=== PATIENT | male | born 1970 | race Caucasian/White ===

== ENCOUNTER → 2016-06-05 | Outpatient (CLI) | payer OTHER ==
[~2016-06-05] MED LIST: ASPEC81 PO; ATOR-26 PO; LOSA50TA6 PO; METO25TA3 PO; MULT-513 PO; OMEGCAP2 PO; PLV75 PO; SALI0.6510 NAE; TPRSR/25 PO; TRIA1SPR4
[2016-06-05 14:35] LABS: INFLUENZA A PCR Neg for Influ A (NEG); INFLUENZA B PCR Neg for Influ B (NEG)
== END | disposition home or self-care (01) ==
LOC: C.LABBC 12:31
PROVIDERS: ATTEND Family Medicine
DX: Z00.00 Encounter for general adult medical examination without abnormal findings (principal)

== ENCOUNTER → 2016-06-28 | Outpatient (CLI) | payer OTHER ==
[2016-06-28 11:01] LABS: BASO ABS # 0.07 K/uL (0-0.2); COMPLETE YES; EOS % 2.1 %; HEMATOCRIT 44.1 % (42-52); IG% 0.3 %; LYMPH % 30.3 %; LYMPH ABS # 2.17 K/uL (1.2-3.4); MEAN CELL VOLUME 88.4 fL (80-100); MEAN CORPUSCULAR HEMOGLOBIN 30.1 pg (25-34); MEAN PLATELET VOLUME 9.8 fL (7.4-10.4); MONO % 8.1 %; NEUT % 58.2 %; PLATELET COUNT 282 K/uL (130-400); RED BLOOD COUNT 4.99 M/uL (4.7-6.1); WHITE BLOOD COUNT 7.17 K/uL (4.8-10.8)
[2016-06-28 11:15] LABS: ALT/SGPT 36 U/L (12-78); AST/SGOT 14 U/L (15-37); BLOOD UREA NITROGEN 14 mg/dl (7-18); BUN/CREATININE RATIO 14.7 (10-20); CALCIUM 9.2 mg/dl (8.5-10.1); CARBON DIOXIDE 28 mmol/L (21-32); CHLORIDE 103 mmol/L (98-107); CREATININE 0.94 mg/dl (0.60-1.40); GLUCOSE 96 mg/dl (70-99); POTASSIUM 4.3 mmol/L (3.5-5.1); SODIUM 141 mmol/L (136-145)
[2016-06-28 11:18] LABS: ALB/GLOB RATIO 1.1 (0.9-2); ALKALINE PHOSPHATASE 67 U/L (45-117); CHOLESTEROL 246 mg/dl (0-200); CHOLESTEROL/HDL RATIO 6.6; HDL CHOLESTEROL 37 mg/dl; LDL CHOLESTEROL CALCULATED 163 mg/dl; TRIGLYCERIDES 232 mg/dl (0-150); VERY LOW DENSITY LIPOPROT CALC 46 mg/dl
[2016-06-28 12:34] LABS: LYME DISEASE AB IGG NEG (NEG); LYME DISEASE AB IGM NEG (NEG)
== END | disposition home or self-care (01) ==
LOC: C.LABBC 06:59
PROVIDERS: ATTEND Family Medicine
DX: T14.8 Other injury of unspecified body region (principal); W57.XXXA Bitten or stung by nonvenomous insect and other nonvenomous arthropods, initial encounter; Z13.0 Encounter for screening for diseases of the blood and blood-forming organs and certain disorders involving the immune mechanism; I10 Essential (primary) hypertension; E78.5 Hyperlipidemia, unspecified

== ENCOUNTER 2016-10-15 20:08 | Inpatient (IN) | payer OTHER ==
[~2016-10-15] VITALS: Ht 175.3 cm; Wt 95.4 kg
[~2016-10-15 20:08] MED LIST changes: -ASPEC81 PO; -ATOR-26 PO; -METO25TA3 PO; -PLV75 PO; -TPRSR/25 PO; -TRIA1SPR4
--- NOTE | 2016-10-15 21:31 | DIAGNOSTIC IMAGING REPORT ---
CHEST ONE VIEW PORTABLE HISTORY: Evaluate Fever/Sepsis COMPARISON: Chest 05/17/2013. FINDINGS: Cardiac silhouette remains top normal in size no pleural effusions. No pneumothorax. Punctate calcified granuloma within the left lower lobe, unchanged. No focal lung consolidations to suggest pneumonia. No evidence for pulmonary edema. IMPRESSION: No significant change compared to the prior study. No acute process. Electronically signed by: Yoshi Johnson M.D. 10/15/2016 9:29 PM Dictated Date/Time: 10/15/2016 9:28 PM
[2016-10-15 22:00] LABS: PARTIAL THROMBOPLASTIN RATIO 1.1; PROTHROMBIN TIME (PATIENT) 10.9 SECONDS (9.0-12.0)
[2016-10-15 22:04] LABS: BASO % 0.6 %; BASO ABS # 0.06 K/uL (0-0.2); COMPLETE YES; HEMATOCRIT 43.5 % (42-52); IG% 0.5 %; LYMPH % 21.9 %; LYMPH ABS # 2.35 K/uL (1.2-3.4); MEAN CELL VOLUME 88.2 fL (80-100); MEAN PLATELET VOLUME 9.1 fL (7.4-10.4); MONO % 8.4 %; NEUT % 67.6 %; PLATELET COUNT 293 K/uL (130-400); RED BLOOD COUNT 4.93 M/uL (4.7-6.1); WHITE BLOOD COUNT 10.71 K/uL (4.8-10.8)
[2016-10-15 22:06] LABS: BUN/CREATININE RATIO 11.2 (10-20); CREATININE 0.93 mg/dl (0.60-1.40); POTASSIUM 3.9 mmol/L (3.5-5.1)
[2016-10-15 22:31] LABS: CKMB/CK RATIO 6.6 (0-3.0); THYROID STIMULATING HORMONE 3.65 uIu/ml (0.300-4.500)
[2016-10-15] MEDS ORDERED: ASPIRIN 81 MG CHEW PO STA (22:35)
[2016-10-15 22:41] LABS: URINE APPEARANCE CLEAR (CLEAR); URINE BILIRUBIN NEG (NEG); URINE COLOR YELLOW; URINE NITRITE NEG (NEG); UROBILINOGEN NEG (NEG)
[2016-10-15 22:42] LABS: MANUAL MICROSCOPIC REQUIRED? NO; REVIEW REQ? NO
[2016-10-15] MEDS ORDERED: HEPARIN SOD 5000 UNIT/0.5 ML CARP ONE (22:46)
[2016-10-15] MEDS ORDERED: HEPARIN 25000 UNIT/500 ML D5W ONE (22:47)
[2016-10-16] VITALS (12 sets, daily range): BP systolic 112–173; BP diastolic 74–114; PULSE 76–96; TEMP 36.5–37; O2SAT 91–97; Ht 175.3 cm; Wt 95.4 kg
[2016-10-16] MEDS ORDERED: MAGNESIUM HYDROXIDE SUSP 30 ML UDC PO PRN (00:45)
[2016-10-16] MEDS ORDERED: POLYETHYLENE (MIRALAX) 17 GM PACK PO PRN (00:45)
[2016-10-16] MEDS ORDERED: SODIUM CHLORIDE 0.65% NA SOLN 45 ML (OCEAN) NAE PRN (00:45)
[2016-10-16] MEDS ORDERED: LABETALOL HCL IV 5 MG/ML 20ML IV PRN (00:45)
[2016-10-16] MEDS ORDERED: ACETAMINOPHEN 325 MG TAB PO PRN ×2 (00:45→20:45)
[2016-10-16] MEDS ORDERED: ALUMINUM/MAGNESIUM/SIMETH (MAALOX MAX) 30 ML UDC PO PRN (00:45)
[2016-10-16] MEDS ORDERED: NITROGLYCERIN 0.4 MG SL PER TAB CHARGE SL PRN (00:45)
[2016-10-16] MEDS ORDERED: ONDANSETRON INJ 2 MG/ML 2 ML VIAL IV PRN ×2 (00:45→20:45)
--- NOTE | 2016-10-16 01:12 | History and Physical ---
History & Physical Date & Time of Service: Oct 16, 2016 at 00:51 Chief Complaint: Chest Discomfort Primary Care Physician: Jaret Reid D.O.Int.Med. History of Present Illness Source: patient, spouse This is a pleasant 46-year-old gentleman with a history of hypertension, but otherwise no cardiac history who presents to the ED after 2 days of epigastric pain. States that the pain started quite suddenly 2 days ago. He describes 10/10 burning-type pain in the epigastrium. States that it was worse prior to meals, and that food in fact made it better. Cannot correlate any specific kinds of food, and no correlation to fatty foods. Sometimes putting a pillow on his back and arching his back makes the pain better. Today however he noted that the pain actually got worse after his dinner and given the persistence of the pain decided to come to the emergency room for further evaluation. Currently his pain is completely gone. States his exercise tolerance is generally good. 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 He also states that he does in home exercises. He denies ever having exertional chest pain or shortness of breath. His other modifiable includes risk factors hypertension, for which she takes losartan. He smokes a total of 1 pack per month, has been doing this for approximately last 20 years. He states that he has "borderline" cholesterol levels, and is not a diabetic. He denies ever being evaluated for coronary disease, he's never had a cardiac catheterization, CABG, or echocardiogram. He his only other complaint at this time is that 2 weeks ago he had URI type symptoms including cough and nasal congestion. However the symptoms have been resolving and he is doing well from the standpoint at this time. He was seen by [facility] earlier on this evening. An EKG was notable for anterior T-wave inversions. There are no acute ST elevations. In the ED he was treated with 325 aspirin chew, 0.4 mg sublingual nitroglycerin. A troponin level was elevated at 2.1, and essentially started on a heparin infusion she currently has running. Past Medical/Surgical History Medical Problems: (1) HYPERTENSION NOS Status: Chronic Family History Cancer Diabetes mellitus Gallbladder disease Hypertension Kidney disease Kidney stones Seizures Social History Smoking Status: Current Some Day Smoker (one pack per month) Smokeless Tobacco Use: No Alcohol Use: occasionally (12 beers per week) Drug Use: none Marital Status: Housing status: lives with family Occupational Status: employed Allergies Coded Allergies: No Known Allergies (Unverified , 10/15/16) Home Medications Scheduled Losartan Potassium (Cozaar), 50 MG PO DAILY Multivitamins/Minerals (Mvi With Minerals), 1 TAB PO DAILY [place]-3 Fatty Acids (Fish Oil), 2 CAP PO DAILY Scheduled PRN Saline ([place] Nasal [place]), 1 SPRAY JAMA for congestion Review of Systems 10 point review of systems was otherwise negative unless stated above in the history of present illness Physical Exam Vital Signs Date Time Temp Pulse Resp B/P (MAP) Pulse Ox O2 Delivery O2 Flow Rate FiO2 10/16/16 00:08 92 20 95 10/16/16 00:00 156/108 10/15/16 23:38 94 18 96 10/15/16 23:08 87 21 97 10/15/16 23:00 165/101 10/15/16 22:38 89 17 96 10/15/16 22:29 163/103 10/15/16 22:29 94 21 163/103 95 Room Air 10/15/16 22:08 86 21 93 10/15/16 22:00 90 20 186/96 95 Room Air 10/15/16 22:00 186/96 10/15/16 21:40 92 22 155/112 97 Room Air 10/15/16 21:38 96 Room Air 10/15/16 21:38 94 25 97 10/15/16 21:33 94 10/15/16 21:31 155/112 10/15/16 20:10 36.7 95 16 172/105 98 Room Air General Appearance: WD/WN, no apparent distress Head: normocephalic, atraumatic Eyes: normal inspection, EOMI ENT: hearing grossly normal, pharynx normal Neck: supple, no adenopathy, no JVD Respiratory/Chest: lungs clear, no respiratory distress Cardiovascular: regular rate, rhythm, no gallop, no murmur Abdomen/GI: normal bowel sounds, non tender, soft, + pertinent finding (no right upper quadrant pain; Fraser sign is negative) Back: no CVA tenderness, no muscle spasm Extremities/Musculoskelatal: no calf tenderness, no pedal edema Neurologic/Psych: alert, normal mood/affect, oriented x 3 Skin: normal color, warm/dry, no rash Lymphatic: no adenopathy Diagnostics Laboratory Results Results Past 24 Hours Test 10/15/16 21:36 10/15/16 22:25 Range/Units White Blood Count 10.71 4.8-10.8 K/uL Red Blood Count 4.93 4.7-6.1 M/uL Hemoglobin 14.8 14.0-18.0 g/dL Hematocrit 43.5 42-52 % Mean Corpuscular Volume 88.2 80-100 fL Mean Corpuscular Hemoglobin 30.0 25-34 pg Mean Corpuscular Hemoglobin Concent 34.0 32-36 g/dl Platelet Count 293 130-400 K/uL Mean Platelet Volume 9.1 7.4-10.4 fL Neutrophils (%) (Auto) 67.6 % Lymphocytes (%) (Auto) 21.9 % Monocytes (%) (Auto) 8.4 % Eosinophils (%) (Auto) 1.0 % Basophils (%) (Auto) 0.6 % Neutrophils # (Auto) 7.24 1.4-6.5 K/uL Lymphocytes # (Auto) 2.35 1.2-3.4 K/uL Monocytes # (Auto) 0.90 0.11-0.59 K/uL Eosinophils # (Auto) 0.11 0-0.5 K/uL Basophils # (Auto) 0.06 0-0.2 K/uL RDW Standard Deviation 42.9 36.4-46.3 fL RDW Coefficient of Variation 13.2 11.5-14.5 % Immature Granulocyte % (Auto) 0.5 % Immature Granulocyte # (Auto) 0.05 0.00-0.02 K/uL Prothrombin Time 10.9 9.0-12.0 SECONDS Prothromb Time International Ratio 1.0 0.9-1.1 Activated Partial Thromboplast Time 28.1 21.0-31.0 SECONDS Partial Thromboplastin Ratio 1.1 Sodium Level 140 136-145 mmol/L Potassium Level 3.9 3.5-5.1 mmol/L Chloride Level 103 98-107 mmol/L Carbon Dioxide Level 29 21-32 mmol/L Anion Gap 8.0 3-11 mmol/L Blood Urea Nitrogen 10 7-18 mg/dl Creatinine 0.93 0.60-1.40 mg/dl Est Creatinine Clear Calc Drug Dose 112.0 ml/min Estimated GFR () 112.1 Estimated GFR (Non- 96.7 BUN/Creatinine Ratio 11.2 10-20 Random Glucose 106 70-99 mg/dl Calcium Level 9.0 8.5-10.1 mg/dl Total Bilirubin 0.3 0.2-1 mg/dl Direct Bilirubin 0.1 0-0.2 mg/dl Aspartate Amino Transf (AST/SGOT) 31 15-37 U/L Alanine Aminotransferase (ALT/SGPT) 35 12-78 U/L Alkaline Phosphatase 72 45-117 U/L Total Creatine Kinase 248 39-308 U/L Creatine Kinase MB 16.4 0.5-3.6 ng/ml Creatine Kinase MB Ratio 6.6 0-3.0 Troponin I 2.120 0-0.045 ng/ml Total Protein 7.3 6.4-8.2 gm/dl Albumin 3.7 3.4-5.0 gm/dl Lipase 150 73-393 U/L Thyroid Stimulating Hormone (TSH) 3.650 0.300-4.500 uIu/ml Urine Color YELLOW Urine Appearance CLEAR CLEAR Urine pH 7.0 4.5-7.5 Urine Specific [place] 1.020 1.000-1.030 Urine Protein NEG NEG Urine Glucose (UA) NEG NEG Urine Ketones NEG NEG Urine Occult Blood NEG NEG Urine Nitrite NEG NEG Urine Bilirubin NEG NEG Urine Urobilinogen NEG NEG Urine Leukocyte Esterase NEG NEG Diagnostic Radiology CHEST ONE VIEW PORTABLE HISTORY: Evaluate Fever/Sepsis COMPARISON: Chest 05/17/2013. FINDINGS: Cardiac silhouette remains top normal in size no pleural effusions. No pneumothorax. Punctate calcified granuloma within the left lower lobe, unchanged. No focal lung consolidations to suggest pneumonia. No evidence for pulmonary edema. IMPRESSION: No significant change compared to the prior study. No acute process. Electronically signed by: Yoshi Johnson M.D. 10/15/2016 9:29 PM Dictated Date/Time: 10/15/2016 9:28 PM The status of this report is Signed. Draft = Not yet reviewed or approved by Radiologist. Signed = Reviewed and approved by Radiologist. EKG Normal sinus rhythm, ventricular rate 95 beats per minutes T-wave inversion in leads V2 to V5 RSR her pattern in lead V1, narrow QRS complexes (incomplete RBBB) No acute ST elevation and no evidence of a left bundle branch block Impression Assessment and Plan (1) NSTEMI (non-ST elevated myocardial infarction) Assessment & Plan: - Admit the patient to telemetry - EKG in the morning and with chest pain - Serial cardiac enzyme monitoring every 6 hours until peak - Consult cardiology - Resting echocardiogram ordered; exercise stress testing may worsen an existing lesions, particularly in the setting of suspected myocardial damage Evaluate for regional wall motion abnormality; there are no previous echoes for comparison The patient ultimately may require cardiac catheterization, though we will leave this decision to cardiology and the primary team - ASA 324 mg given in the ED; continue with daily aspirin 81 mg - Sublingual nitroglycerin 0.4 mg when necessary for chest pain - Start atorvastatin 80 mg - Continue losartan; decision to cell changer to ACEi at the discretion of primary team and cardiology - Decision to start beta liset, per primary team cardiology - Heparin infusion - Risk factor screening: Check fasting lipid profile and hemoglobin A1c with morning labs - Recommend smoking cessation counseling - Recommend pneumococcal vaccine, the patient is indeed confirmed to had an acute ID (2) HTN (hypertension) Assessment & Plan: - Continue losartan: Decision to cell changer to an SUSANNE inhibitor, per primary team and cardiology - Labetalol 5 mg IV every 4 hours when necessary for SBP greater than 160 or DBP greater than 100 (3) Lung granuloma Assessment & Plan: - As noted on chest x-ray - Stable compared to chest x-ray from 2014 DVT Prophylaxis - SCD - Heparin infusion Code Status - Level I Code - Designates to be POA if he cannot make his own decisions Disposition - Telemetry monitoring Level of Care Telemetry Resuscitation Status FULL RESUSCITATION VTE Prophylaxis VTE Risk Assessment Done? Y/N: Yes Risk Level: Moderate Given or contraindicated: Other Anticoagulation (heparin infusion) Note Resident Physician Supervision Note: I was present with Dr. Rey during the history and exam. I discussed the case with the resident and agree with the findings and plan as documented in the note. Any exceptions or clarifications are listed here: 46 y/o M - HTN, light smoker , overweight - Intermittent CP x 3 days Presented to ER where intial trop was elevated > 2.0 - no definitive ischemic changes on EKG OE AAO x 3 S1,2 R CTAB NT, ND No CCE P: ASA, Statin, Full dose Heparin, B liset, NTG, - echo - cardio consultation - will likely need cath Discussed in detail with pt Documented By: Jong Negron
--- NOTE | 2016-10-16 01:12 | EMERGENCY ROOM VISIT NOTE ---
History Report prepared by Marian: Keila Lauren Under the Supervision of: Dr. Loagn Drake D.O. First contact with patient: 21:06 Chief Complaint: CHEST PAIN Stated Complaint: CHEST DISCOMFORT Nursing Triage Summary: Patient states, "I thought it was heartburn, but it's turning out not so much I guess. My stomach is hurting since Friday on and off...it would go away." Denies cardiac hx. Sent here from [facility]. History of Present Illness The patient is a 46 year old male who presents to the Emergency Room with complaints of persistent chest pain starting 2 days ago. The pain started after he ate a meal at [employer]. He thought the pain might be due to indigestion and heartburn. He has taken Zantac and Maalox to no significant relief. The pain is worse in the morning. The pain is relieved somewhat by eating. He received a cocktail of medications at [facility] which helped. He also reports abdominal pain. He admits to smoking and drinking. He denies any history of heart problems in the family. Source of History: patient Onset: 2 days ago Position: chest Quality: other (pain) Timing: other (persistent) Modifying Factors (Worsening): other (morning) Modifying Factors (Relieving): eating Associated Symptoms: + abdominal pain Review of Systems See HPI for pertinent positives & negatives. A total of 10 systems reviewed and were otherwise negative. Past Medical & Surgical Medical Problems: (1) Elevated troponin (2) HTN (hypertension) (3) HYPERTENSION NOS (4) Lung granuloma Family History Cancer Diabetes mellitus Gallbladder disease Hypertension Kidney disease Kidney stones Seizures Social History Smoking Status: Current Some Day Smoker Alcohol Use: occasionally Marital Status: Housing Status: lives with family Occupation Status: employed Current/Historical Medications Scheduled Losartan Potassium (Cozaar), 50 MG PO DAILY Multivitamins/Minerals (Mvi With Minerals), 1 TAB PO DAILY [place]-3 Fatty Acids (Fish Oil), 2 CAP PO DAILY Scheduled PRN Saline ([place] Nasal [place]), 1 SPRAY JAMA for congestion Allergies Coded Allergies: No Known Allergies (Unverified , 10/15/16) Physical Exam Vital Signs Date Time Temp Pulse Resp B/P (MAP) Pulse Ox O2 Delivery O2 Flow Rate FiO2 10/16/16 00:08 92 20 95 10/16/16 00:00 156/108 10/15/16 23:38 94 18 96 10/15/16 23:08 87 21 97 10/15/16 23:00 165/101 10/15/16 22:38 89 17 96 10/15/16 22:29 163/103 10/15/16 22:29 94 21 163/103 95 Room Air 10/15/16 22:08 86 21 93 10/15/16 22:00 90 20 186/96 95 Room Air 10/15/16 22:00 186/96 10/15/16 21:40 92 22 155/112 97 Room Air 10/15/16 21:38 96 Room Air 10/15/16 21:38 94 25 97 10/15/16 21:33 94 10/15/16 21:31 155/112 10/15/16 20:10 36.7 95 16 172/105 98 Room Air Physical Exam CONSTITUTIONAL/VITAL SIGNS: Reviewed / noted above. GENERAL: Non-toxic in appearance. INTEGUMENTARY: Warm, dry, and [place]. HEAD: Normocephalic. EYES: without scleral icterus or trauma. ENT/OROPHARYNX: clear and moist. LYMPHADENOPATHY/NECK: Is supple without lymphadenopathy or meningismus. RESPIRATORY: Lungs clear and equal. CARDIOVASCULAR: Regular rate and rhythm. GI/ABDOMEN: Soft and nontender. No organomegaly or pulsatile mass. No rebound or guarding. Normal bowel sounds. EXTREMITIES: Warm and well perfused. BACK: No CVA tenderness. NEUROLOGICAL: Intact without focal deficits. PSYCHIATRIC: normal affect. MUSCULOSKELETAL: Normally developed with good muscle tone. Medical Decision & Procedures ER Provider Diagnostic Interpretation: X ray results and stated below per my interpretation and radiology interpretation. CHEST ONE VIEW PORTABLE HISTORY: Evaluate Fever/Sepsis COMPARISON: Chest 05/17/2013. FINDINGS: Cardiac silhouette remains top normal in size no pleural effusions. No pneumothorax. Punctate calcified granuloma within the left lower lobe, unchanged. No focal lung consolidations to suggest pneumonia. No evidence for pulmonary edema. IMPRESSION: No significant change compared to the prior study. No acute process. Electronically signed by: Yoshi Johnson M.D. 10/15/2016 9:29 PM Dictated Date/Time: 10/15/2016 9:28 PM Laboratory Results 10/15/16 21:36 Red Blood Count 4.93, Mean Corpuscular Volume 88.2, Mean Corpuscular Hemoglobin 30.0, Mean Corpuscular Hemoglobin Concent 34.0, Mean Platelet Volume 9.1, Neutrophils (%) (Auto) 67.6, Lymphocytes (%) (Auto) 21.9, Monocytes (%) (Auto) 8.4, Eosinophils (%) (Auto) 1.0, Basophils (%) (Auto) 0.6, Neutrophils # (Auto) 7.24, Lymphocytes # (Auto) 2.35, Monocytes # (Auto) 0.90, Eosinophils # (Auto) 0.11, Basophils # (Auto) 0.06 10/15/16 21:36 Test 10/15/16 21:36 10/15/16 22:25 White Blood Count 10.71 K/uL (4.8-10.8) Red Blood Count 4.93 M/uL (4.7-6.1) Hemoglobin 14.8 g/dL (14.0-18.0) Hematocrit 43.5 % (42-52) Mean Corpuscular Volume 88.2 fL (80-100) Mean Corpuscular Hemoglobin 30.0 pg (25-34) Mean Corpuscular Hemoglobin Concent 34.0 g/dl (32-36) Platelet Count 293 K/uL (130-400) Mean Platelet Volume 9.1 fL (7.4-10.4) Neutrophils (%) (Auto) 67.6 % Lymphocytes (%) (Auto) 21.9 % Monocytes (%) (Auto) 8.4 % Eosinophils (%) (Auto) 1.0 % Basophils (%) (Auto) 0.6 % Neutrophils # (Auto) 7.24 K/uL (1.4-6.5) Lymphocytes # (Auto) 2.35 K/uL (1.2-3.4) Monocytes # (Auto) 0.90 K/uL (0.11-0.59) Eosinophils # (Auto) 0.11 K/uL (0-0.5) Basophils # (Auto) 0.06 K/uL (0-0.2) RDW Standard Deviation 42.9 fL (36.4-46.3) RDW Coefficient of Variation 13.2 % (11.5-14.5) Immature Granulocyte % (Auto) 0.5 % Immature Granulocyte # (Auto) 0.05 K/uL (0.00-0.02) Prothrombin Time 10.9 SECONDS (9.0-12.0) Prothromb Time International Ratio 1.0 (0.9-1.1) Activated Partial Thromboplast Time 28.1 SECONDS (21.0-31.0) Partial Thromboplastin Ratio 1.1 Anion Gap 8.0 mmol/L (3-11) Est Creatinine Clear Calc Drug Dose 112.0 ml/min Estimated GFR () 112.1 Estimated GFR (Non- 96.7 BUN/Creatinine Ratio 11.2 (10-20) Calcium Level 9.0 mg/dl (8.5-10.1) Total Bilirubin 0.3 mg/dl (0.2-1) Direct Bilirubin 0.1 mg/dl (0-0.2) Aspartate Amino Transf (AST/SGOT) 31 U/L (15-37) Alanine Aminotransferase (ALT/SGPT) 35 U/L (12-78) Alkaline Phosphatase 72 U/L (45-117) Total Creatine Kinase 248 U/L (39-308) Creatine Kinase MB 16.4 ng/ml (0.5-3.6) Creatine Kinase MB Ratio 6.6 (0-3.0) Troponin I 2.120 ng/ml (0-0.045) Total Protein 7.3 gm/dl (6.4-8.2) Albumin 3.7 gm/dl (3.4-5.0) Lipase 150 U/L (73-393) Thyroid Stimulating Hormone (TSH) 3.650 uIu/ml (0.300-4.500) Urine Color YELLOW Urine Appearance CLEAR (CLEAR) Urine pH 7.0 (4.5-7.5) Urine Specific [place] 1.020 (1.000-1.030) Urine Protein NEG (NEG) Urine Glucose (UA) NEG (NEG) Urine Ketones NEG (NEG) Urine Occult Blood NEG (NEG) Urine Nitrite NEG (NEG) Urine Bilirubin NEG (NEG) Urine Urobilinogen NEG (NEG) Urine Leukocyte Esterase NEG (NEG) Laboratory results as stated above per my review. Medications Administered Medications (Trade) Dose Ordered Sig/Yared Route Start Time Stop Time Status Last Admin Dose Admin Aspirin (Aspirin Chew) 324 mg NOW STAT PO 10/15/16 22:35 10/15/16 22:36 DC 10/15/16 22:50 324 MG Heparin Sodium (Porcine) (Heparin Sq 5000 Unit/0.5ml) 5,000 unit STK-MED ONCE .ROUTE 10/15/16 22:46 10/15/16 22:47 DC 10/15/16 22:55 4,000 UNIT Heparin Sodium/ Dextrose (Heparin 25,000 Unit/500ml D5W) 25,000 unit STK-MED ONCE .ROUTE 10/15/16 22:47 10/15/16 22:48 DC 10/15/16 22:57 25,000 UNIT ECG Indication: chest pain Rate (beats per minute): 94 Rhythm: normal sinus Findings: no ectopy, other (no acute injury) ED Course 2155: Previous medical records were reviewed. The patient was evaluated in room B5. A complete history and physical examination was performed. 2235: Aspirin 324 mg IV. 2236: On reevaluation, the patient is resting comfortably. I discussed the results and findings with him. He verbalized agreement of the treatment plan. The patient will be evaluated for further management and care. 2246: Heparin Sodium (Porcine) 5000 unit IV. 2247: Heparin Sodium/Dextrose 90213 unit IV. 2345: I discussed the patient's case with Dr. Migdalia DUBOIS hospitalist service. The patient will be evaluated for further treatment and disposition. Medical Decision the differential was considered includes acute myocardial infarction, acute coronary syndrome, myocarditis, pericarditis, pericardial effusions /tamponad, esophageal perforation, thoracic aortic dissection, pulmonary embolism, pneumonia, pneumothorax, pancreatitis, shingles, acute cholecystitis, perforated abdominal viscus. Medication Reconciliation: I attest that I have personally reviewed the patient' s current medication list. Blood pressure Screening: Patient was found to have an elevated blood pressure and was referred to their primary doctor for recheck and further treatment. . This is a 46-year-old male who presents to the ED with a chief complaint of indigestion and heartburn since Friday. The patient's symptoms initially started Friday after eating at a local restaurant. The patient states that today his symptoms got a little worse but seemed to be better after having a GI cocktail at [employer]. He did state that his symptoms seem to feel worse when he was getting hungry and then eating helped. He states that today he ate and his symptoms worsen. He denied having any exertional symptoms and reports that exertion seemed to make his symptoms better.The patient was sent here for further evaluation as of his symptoms. His initial blood pressure reveal hypertension. His exam was unremarkable. His EKG shows a normal sinus rhythm at a rate of 94. Troponin is elevated at 2.12. CBC was unremarkable. Chemistry panel was unremarkable. The patient was asymptomatic when he was evaluated by myself. He was treated with aspirin by mouth as well as started on IV heparin. Consults Time Called: [phone] Consulting Physician: Dr. Migdalia SALINAS hospitalist service Returned Call: [phone] I discussed the patient's case with him. The patient will be evaluated for further treatment and disposition. Impression Primary Impression: NSTEMI (non-ST elevated myocardial infarction) Scribe Attestation The scribe's documentation has been prepared under my direction and personally reviewed by me in its entirety. I confirm that the note above accurately reflects all work, treatment, procedures, and medical decision making performed by me. Departure Information Dispostion Being Evaluated By Hospitalist Referrals Jaret Reid, [place].O.Int.Med. (PCP) Patient Instructions My [facility]
[2016-10-16] MEDS: HEPARIN 25,000 UNIT/500ML D5W 500 ML IV PRN ×2 (02:54→08:22)
[2016-10-16 06:32] LABS: HEMATOCRIT 43.9 % (42-52); MEAN CELL VOLUME 88.9 fL (80-100); MEAN CORPUSCULAR HEMOGLOBIN 30.2 pg (25-34); MEAN CORPUSCULAR HGB CONC 33.9 g/dl (32-36); MEAN PLATELET VOLUME 8.9 fL (7.4-10.4); PLATELET COUNT 266 K/uL (130-400); RED BLOOD COUNT 4.94 M/uL (4.7-6.1); WHITE BLOOD COUNT 12.71 K/uL (4.8-10.8)
[2016-10-16 07:04] LABS: PARTIAL THROMBOPLASTIN RATIO 1.8
[2016-10-16 07:10] LABS: BUN/CREATININE RATIO 11.8 (10-20); CALCIUM 8.7 mg/dl (8.5-10.1); CREATININE 0.87 mg/dl (0.60-1.40); POTASSIUM 4.3 mmol/L (3.5-5.1)
[2016-10-16 07:28] LABS: CHOLESTEROL/HDL RATIO 5.7; CKMB/CK RATIO 6.9 (0-3.0)
[2016-10-16 07:48] LABS: ESTIMATED AVERAGE GLUCOSE 114 mg/dl; HA1C FLAG Normal (Normal)
[2016-10-16] MEDS: ASPIRIN 81 MG ECTAB PO SCH (08:07)
[2016-10-16] MEDS: ATORVASTATIN 40 MG TAB PO SCH (08:17)
[2016-10-16] MEDS: LOSARTAN POTASSIUM 50 MG TAB PO SCH (08:17)
[2016-10-16] MEDS: OMEGA-3 (PURIFIED FISH OIL) 1 GM CAP PO SCH (08:17)
[2016-10-16] MEDS: CEROVITE ADV FORMULA TAB PO SCH (08:17)
[2016-10-16] MEDS ORDERED: HEPARIN IV BOLUS 3,000 UNIT in SYRINGE 0 ML IV ONE (08:30)
--- NOTE | 2016-10-16 10:10 | ECHOCARDIOGRAM REPORT ---
*NOTICE TO RECEIVING LIBERTARIAN AGENCY This information is strictly Confidential and protected under [place] law. [place] law prohibits you from making any further disclosure of this information unless further disclosure is expressly permitted by the written consent of the person to whom it pertains or is authorized by law. A general authorization for the release of medical or other information is not sufficient for this purpose. Hospital accepts no responsibility if the information is made available to any other person, INCLUDING THE PATIENT. Interpretation Summary * Name: CARINE PATEL Study Date: 10/16/2016 06:41 AM BP: 140/90 mmHg * Patient Location: .2E\S\E202\S\1 HR: 88 * : 1970 (M/d/yyyy) Gender: Male Height: 69 in * Age: 46 yrs Ethnicity: CA Weight: 215 lb * Ordering Physician: Phil Rey * Performed By: Corrina Peterson * * Reason For Study: AMI * BSA: 2.1 m2 * -- Conclusions -- * The left ventricle is mildly dilated. * Left ventricular systolic function is normal. * Grade I diastolic dysfunction, (abnormal relaxation pattern). * Borderline left atrial enlargement. Procedure Details * A complete two-dimensional transthoracic echocardiogram was performed (2D, M-mode, Doppler and color flow Doppler). Left Ventricle * The left ventricle is mildly dilated. * There is normal left ventricular wall thickness. * Ejection Fraction = 60-65%. * Left ventricular systolic function is normal. * Grade I diastolic dysfunction, (abnormal relaxation pattern). * The left ventricular wall motion is normal. Right Ventricle * The right ventricle is normal in size and function. Atria * Borderline left atrial enlargement. * Right atrial size is normal. Mitral Valve * The mitral valve leaflets appear normal. There is no evidence of stenosis, fluttering, or prolapse. * There is no mitral regurgitation noted. Tricuspid Valve * The tricuspid valve is not well visualized, but is grossly normal. * Significant tricuspid regurgitation is absent. Aortic Valve * The aortic valve is normal in structure and function. * No hemodynamically significant valvular aortic stenosis. * There is no significant aortic regurgitation. Great Vessels * The aortic root and proximal ascending aorta are normal sized. Pericardium/Pleural * There is no pericardial effusion. MMode 2D Measurements and Calculations IVSd 1.2 cm IVSs 1.7 cm LVIDd 5.7 cm LVIDs 3.8 cm LVPWd 0.95 cm LVPWs 1.6 cm IVS/LVPW 1.2 FS 32.7 % EDV(Teich) 158.2 ml ESV(Teich) 62.7 ml EF(Teich) 60.4 % EDV(cubed) 182.4 ml ESV(cubed) 55.7 ml EF(cubed) 69.5 % % IVS thick 41.6 % % LVPW thick 72.1 % LV mass(C)d 244.5 grams LV mass(C)dI 114.7 grams/m\S\2 LV mass(C)s 255.9 grams LV mass(C)sI 120.1 grams/m\S\2 SV(Teich) 95.5 ml SI(Teich) 44.8 ml/m\S\2 SV(cubed) 126.7 ml SI(cubed) 59.5 ml/m\S\2 ACS 1.8 cm LA dimension 3.9 cm asc Aorta Diam 3.2 cm LVOT diam 2.2 cm LVOT area 3.7 cm\S\2 LVAd ap4 37.4 cm\S\2 LVLd ap4 8.3 cm EDV(MOD-sp4) 135.3 ml EDV(sp4-el) 143.5 ml LVAs ap4 19.6 cm\S\2 LVLs ap4 7.1 cm ESV(MOD-sp4) 48.8 ml ESV(sp4-el) 45.6 ml EF(MOD-sp4) 63.9 % EF(sp4-el) 68.2 % LVAd ap2 30.6 cm\S\2 LVLd ap2 8.2 cm EDV(MOD-sp2) 94.1 ml EDV(sp2-el) 97.3 ml LVAs ap2 17.0 cm\S\2 LVLs ap2 6.4 cm ESV(MOD-sp2) 37.3 ml ESV(sp2-el) 38.5 ml EF(MOD-sp2) 60.3 % EF(sp2-el) 60.4 % LVLd %diff -1.73 % EDV(MOD-bp) 115.0 ml LVLs %diff -11.47 % ESV(MOD-bp) 44.1 ml EF(MOD-bp) 61.6 % SV(MOD-sp4) 86.5 ml SI(MOD-sp4) 40.6 ml/m\S\2 SV(MOD-sp2) 56.8 ml SI(MOD-sp2) 26.6 ml/m\S\2 SV(MOD-bp) 70.9 ml SI(MOD-bp) 33.3 ml/m\S\2 SV(sp4-el) 97.9 ml SI(sp4-el) 45.9 ml/m\S\2 SV(sp2-el) 58.8 ml SI(sp2-el) 27.6 ml/m\S\2 Doppler Measurements and Calculations MV E max delilah 81.1 cm/sec MV A max delilah 90.1 cm/sec MV E/A 0.90 MV dec time 0.17 sec Ao V2 max 123.3 cm/sec Ao max PG 6.1 mmHg Ao max PG (full) 2.0 mmHg MURRAY(V,A) 3.0 cm\S\2 MURRAY(V,D) 3.0 cm\S\2 LV V1 max PG 4.1 mmHg LV V1 max 100.8 cm/sec PA V2 max 72.8 cm/sec PA max PG 2.1 mmHg
[2016-10-16] MEDS: METOPROLOL TARTRATE 25 MG TAB PO SCH ×2 (11:19→21:25)
--- NOTE | 2016-10-16 12:56 | Family Medicine Progress Note ---
Progress Note Date of Service Oct 16, 2016. Subjective Pt evaluation today including: conversation w/ patient, physical exam, chart review, lab review, review of studies, review of inpatient medication list Pain: denies pain Voiding: no voiding problems No acute events. Patient reports no complaints. he denies further chest pain, No SOB, palpitation, presyncope, syncope. Constitutional: No fever, No chills ENT: No nasal symptoms, No sore throat Respiratory: No cough Cardiovascular: No chest pain, No edema, No palpitations Abdomen: No pain, No nausea, No vomiting, No diarrhea, No constipation Male : No dysuria, No urinary frequency Neurologic: No weakness, No numbness/tingling Skin: No rash, No itch Medications Current Inpatient Medications Medications (Trade) Dose Ordered Sig/Yared Route Start Time Stop Time Status Last Admin Dose Admin Acetaminophen (Tylenol Tab) 650 mg Q4H PRN PO 10/16/16 00:45 11/15/16 00:44 Al Hydrox/Mg Hydrox/Simethicone (Maalox Max Susp) 15 ml Q4H PRN PO 10/16/16 00:45 11/15/16 00:44 Magnesium Hydroxide (Milk Of Magnesia Susp) 30 ml Q12H PRN PO 10/16/16 00:45 11/15/16 00:44 Ondansetron HCl (Zofran Inj) 4 mg Q6H PRN IV 10/16/16 00:45 11/15/16 00:44 Nitroglycerin (Nitrostat Tab) 0.4 mg UD PRN SL 10/16/16 00:45 11/15/16 00:44 Aspirin (Ecotrin Tab) 81 mg QAM PO 10/16/16 09:00 11/15/16 08:59 10/16/16 08:07 81 MG Polyethylene (Miralax Powder Packet) 17 gm DAILY PRN PO 10/16/16 00:45 11/15/16 00:44 Losartan Potassium (coZAAR TAB) 50 mg DAILY PO 10/16/16 09:00 11/15/16 08:59 10/16/16 08:17 50 MG Multivitamins/ Minerals (Multivitamin W/ Minerals Tab) 1 tab DAILY PO 10/16/16 09:00 11/15/16 08:59 Sodium Chloride ([place] Nasal [place]) 1 sprays PRN PRN JAMA 10/16/16 00:45 11/15/16 00:44 Fish Oil ([place]-3 (Purified Fish Oil) Cap) 2 gm DAILY PO 10/16/16 09:00 11/15/16 08:59 Labetalol HCl (Normodyne IV) 5 mg Q4H PRN IV 10/16/16 00:45 11/15/16 00:44 10/16/16 02:54 5 MG Atorvastatin Calcium (Lipitor Tab) 40 mg QAM PO 10/16/16 09:00 11/15/16 08:59 10/16/16 08:17 40 MG Heparin Sodium/ Dextrose 500 ml @ 30 mls/hr [id number] PRN IV 10/16/16 02:30 11/15/16 02:29 10/16/16 08:22 32 MLS/HR Metoprolol Tartrate (Lopressor Tab) 25 mg BID PO 10/16/16 09:45 11/15/16 09:44 10/16/16 11:19 25 MG Objective Vital Signs Date Time Temp Pulse Resp B/P (MAP) Pulse Ox O2 Delivery O2 Flow Rate FiO2 10/16/16 20:32 81 16 122/80 (94) 96 Room Air 10/16/16 20:27 80 16 124/85 (98) 96 Room Air 10/16/16 20:22 81 16 121/71 (88) 96 Room Air 10/16/16 20:17 83 16 120/76 (91) 99 Mask 3 10/16/16 20:00 Room Air 10/16/16 16:00 Room Air 10/16/16 15:14 36.7 79 15 137/86 (103) 96 Room Air 10/16/16 12:00 Room Air 10/16/16 11:28 36.7 78 18 134/81 (98) 96 Room Air 10/16/16 08:00 Room Air 10/16/16 07:24 36.8 76 18 155/83 (107) 97 Room Air 10/16/16 04:00 Room Air 10/16/16 04:00 37.0 88 20 140/90 (107) 96 Room Air 10/16/16 01:59 36.8 96 24 173/114 96 Room Air 10/16/16 01:15 90 20 133/102 94 10/16/16 00:08 92 20 95 10/16/16 00:00 156/108 10/15/16 23:38 94 18 96 10/15/16 23:08 87 21 97 10/15/16 23:00 165/101 10/15/16 22:38 89 17 96 10/15/16 22:29 163/103 10/15/16 22:29 94 21 163/103 95 Room Air 10/15/16 22:08 86 21 93 10/15/16 22:00 90 20 186/96 95 Room Air 10/15/16 22:00 186/96 10/15/16 21:40 92 22 155/112 97 Room Air 10/15/16 21:38 96 Room Air 10/15/16 21:38 94 25 97 10/15/16 21:33 94 10/15/16 21:31 155/112 Physical Exam General Appearance: WD/WN, no apparent distress Eyes: PERRL, EOMI Neck: supple, no adenopathy, trachea midline Respiratory/Chest: lungs clear, normal breath sounds, no respiratory distress Cardiovascular: regular rate, rhythm, no murmur Abdomen: normal bowel sounds, non tender, soft Extremities: no pedal edema, no calf tenderness Neurologic/Psychiatric: alert, normal mood/affect Skin: normal color, warm/dry, no rash Laboratory Results Results Past 24 Hours Test 10/15/16 21:36 10/15/16 22:25 10/16/16 06:28 10/16/16 13:11 Range/Units White Blood Count 10.71 12.71 4.8-10.8 K/uL Red Blood Count 4.93 4.94 4.7-6.1 M/uL Hemoglobin 14.8 14.9 14.0-18.0 g/dL Hematocrit 43.5 43.9 42-52 % Mean Corpuscular Volume 88.2 88.9 80-100 fL Mean Corpuscular Hemoglobin 30.0 30.2 25-34 pg Mean Corpuscular Hemoglobin Concent 34.0 33.9 32-36 g/dl Platelet Count 293 266 130-400 K/uL Mean Platelet Volume 9.1 8.9 7.4-10.4 fL Neutrophils (%) (Auto) 67.6 % Lymphocytes (%) (Auto) 21.9 % Monocytes (%) (Auto) 8.4 % Eosinophils (%) (Auto) 1.0 % Basophils (%) (Auto) 0.6 % Neutrophils # (Auto) 7.24 1.4-6.5 K/uL Lymphocytes # (Auto) 2.35 1.2-3.4 K/uL Monocytes # (Auto) 0.90 0.11-0.59 K/uL Eosinophils # (Auto) 0.11 0-0.5 K/uL Basophils # (Auto) 0.06 0-0.2 K/uL RDW Standard Deviation 42.9 43.4 36.4-46.3 fL RDW Coefficient of Variation 13.2 13.5 11.5-14.5 % Immature Granulocyte % (Auto) 0.5 % Immature Granulocyte # (Auto) 0.05 0.00-0.02 K/uL Prothrombin Time 10.9 9.0-12.0 SECONDS Prothromb Time International Ratio 1.0 0.9-1.1 Activated Partial Thromboplast Time 28.1 45.7 73.1 21.0-31.0 SECONDS Partial Thromboplastin Ratio 1.1 1.8 2.8 Sodium Level 140 140 136-145 mmol/L Potassium Level 3.9 4.3 3.5-5.1 mmol/L Chloride Level 103 107 98-107 mmol/L Carbon Dioxide Level 29 26 21-32 mmol/L Anion Gap 8.0 7.0 3-11 mmol/L Blood Urea Nitrogen 10 10 7-18 mg/dl Creatinine 0.93 0.87 0.60-1.40 mg/dl Est Creatinine Clear Calc Drug Dose 112.0 118.3 ml/min Estimated GFR () 112.1 118.3 Estimated GFR (Non- 96.7 102.1 BUN/Creatinine Ratio 11.2 11.8 10-20 Random Glucose 106 103 70-99 mg/dl Calcium Level 9.0 8.7 8.5-10.1 mg/dl Total Bilirubin 0.3 0.2-1 mg/dl Direct Bilirubin 0.1 0-0.2 mg/dl Aspartate Amino Transf (AST/SGOT) 31 15-37 U/L Alanine Aminotransferase (ALT/SGPT) 35 12-78 U/L Alkaline Phosphatase 72 45-117 U/L Total Creatine Kinase 248 306 246 39-308 U/L Creatine Kinase MB 16.4 21.1 14.8 0.5-3.6 ng/ml Creatine Kinase MB Ratio 6.6 6.9 6.0 0-3.0 Troponin I 2.120 5.560 4.850 0-0.045 ng/ml Total Protein 7.3 6.4-8.2 gm/dl Albumin 3.7 3.4-5.0 gm/dl Lipase 150 73-393 U/L Thyroid Stimulating Hormone (TSH) 3.650 0.300-4.500 uIu/ml Urine Color YELLOW Urine Appearance CLEAR CLEAR Urine pH 7.0 4.5-7.5 Urine Specific [place] 1.020 1.000-1.030 Urine Protein NEG NEG Urine Glucose (UA) NEG NEG Urine Ketones NEG NEG Urine Occult Blood NEG NEG Urine Nitrite NEG NEG Urine Bilirubin NEG NEG Urine Urobilinogen NEG NEG Urine Leukocyte Esterase NEG NEG Estimated Average Glucose 114 mg/dl Hemoglobin A1c 5.6 4.5-5.6 % Triglycerides Level 236 0-150 mg/dl Cholesterol Level 210 0-200 mg/dl HDL Cholesterol 37 mg/dl LDL Cholesterol, Calculated 126 mg/dl VLDL Cholesterol, Calculated 47 mg/dl Cholesterol/HDL Ratio 5.7 Test 10/16/16 18:09 10/16/16 19:49 10/16/16 20:05 Range/Units Total Creatine Kinase 204 39-308 U/L Creatine Kinase MB 11.4 0.5-3.6 ng/ml Creatine Kinase MB Ratio 5.6 0-3.0 Troponin I 4.550 0-0.045 ng/ml [place] Activated Coagulation Time 180 224 94-140 SECONDS Assessment and Plan 46 yo M with Hx of HTN, Tobacco use, presented with epigastric pain admitted with NSTEMI, symptoms resolved, scheduled for Cardiac Cath today. 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 Discussed with Dr. Ferreira and agree with findings and plan as documented in the note. Any exceptions or clarifications are listed here: Please see my additional documentation under a separate progress note. Documented By: Sb Alvarez Discharge planning: home Resident Tracking Resident Involvement: Resident Care Provided Care Provided: Adult Hospital Medicine
[2016-10-16 13:51] LABS: PARTIAL THROMBOPLASTIN RATIO 2.8
--- NOTE | 2016-10-16 18:16 | Progress Note ---
Progress Note Date of Service Oct 16, 2016. Progress Note Resident Physician Supervision Note: I interviewed and examined the patient. Discussed with Dr. Ferreira and agree with findings and plan as documented in his separate note. 46 y/o male with NSTEMI seen this morning. 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 He denies chest pain since his admission. He is awaiting LHC today dependent on lab and cardiology availability. NSTEMI (non-ST elevated myocardial infarction) [facility] today Continue heparin drip. Add beta liset given increased BP HTN (hypertension) Add beta liset Documented By: Sb Alvarez
[2016-10-16 18:48] LABS: CKMB/CK RATIO 5.6 (0-3.0)
[2016-10-16] MEDS ORDERED: NiCARDipine HCL INJ 2.5 MG/ML 10 ML AMP ONE (19:05)
[2016-10-16] MEDS ORDERED: FENTANYL CITRATE INJ 50 MCG/1 ML 2 ML VIAL ONE (19:05)
[2016-10-16] MEDS ORDERED: HEPARIN SOD (PORCINE) 1000 UNIT/ML 10 ML VIAL ONE ×2 (19:05→20:09)
[2016-10-16] MEDS ORDERED: MIDAZOLAM HCL 1 MG/ML 2ML VIAL ONE (19:05)
[2016-10-16] MEDS ORDERED: NITROGLYCERIN/D5W 100MCG/ML 20ML SYR ONE (19:05)
[2016-10-16] MEDS ORDERED: CLOPIDOGREL BISULFATE 300 MG TAB PO ONE (20:20)
--- NOTE | 2016-10-16 20:28 | Procedure Note ---
Pre-Mod Sedation Assessment General Date of Moderate Sedation: Oct 16, 2016. Vital Signs: Vital Signs Past 12 Hours Date Time Temp Pulse Resp B/P (MAP) Pulse Ox O2 Delivery O2 Flow Rate FiO2 10/16/16 20:22 81 16 121/71 (88) 96 Room Air 10/16/16 20:17 83 16 120/76 (91) 99 Mask 3 10/16/16 20:00 Room Air 10/16/16 16:00 Room Air 10/16/16 15:14 36.7 79 15 137/86 (103) 96 Room Air 10/16/16 12:00 Room Air 10/16/16 11:28 36.7 78 18 134/81 (98) 96 Room Air Review Cardiovascular: regular rate, rhythm, no edema Abdomen: normal bowel sounds, non tender Lungs: chest non-tender, lungs clear Airway Class: II Pre-Sedation Airway Assessment Oral Cavity: WNL Able to Visualize Vocal Cords: No Short Thick Neck: No Hx of Sleep Apnea: No Smoking Status: Current Some Day Smoker Mallampati Classification: Class III ASA Classification: Class II Procedure Planning Contraindications-for Mod Sed: None Yes Notes The planned sedation has been discussed with the patient and consent obtained. I have identified the patient, determined the appropriateness of sedation and have assessed the patient immediately prior to the procedure. All medicine(s) and interventions are by my order.
--- NOTE | 2016-10-16 20:28 | Procedure Note ---
Post-Mod Sedation Assessment General Date of Moderate Sedation Oct 16, 2016. Vital Signs: Vital Signs Past 12 Hours Date Time Temp Pulse Resp B/P (MAP) Pulse Ox O2 Delivery O2 Flow Rate FiO2 10/16/16 20:22 81 16 121/71 (88) 96 Room Air 10/16/16 20:17 83 16 120/76 (91) 99 Mask 3 10/16/16 20:00 Room Air 10/16/16 16:00 Room Air 10/16/16 15:14 36.7 79 15 137/86 (103) 96 Room Air 10/16/16 12:00 Room Air 10/16/16 11:28 36.7 78 18 134/81 (98) 96 Room Air Review - Discharge Criteria Vital Signs Stable: Yes Alert/Oriented/Conversant: Yes Returned to Baseline Mental St: Yes Nausea Absent/Minimal: Yes Pain/Discomfort/Absent/Minimal: Yes Normal/Baseline Respirations: Yes Active Bleeding?: No Pt Received D/C Instructions: N/A Prescriptions Given: None Specific Proced. D/C Criteria Distal Pulses Present (Cardiac: Yes Groin site assessed-Card Cath: N/A Voided Prior To Discharge: N/A Discharged Patients Adult Escort/Transportation: Yes
--- NOTE | 2016-10-16 20:44 | Cardiac Catheterization ---
Procedure Note Procedure Date Oct 16, 2016. Pre-Procedure Diagnosis Non STEMI AUC Score 8 Post-Procedure Diagnosis Severe CAD, Successful PCI, Normal Intracardiac Pressures Procedure(s) Performed Coronary Angiography, Left Heart Cath, Drug Eluting Stent Web User Experience Strategist Jose De Jesus Bond Analyst(s) Binta Estimated Blood Loss 15 Medication(s) Clopidogrel, Fentanyl, Heparin, Nicardipine, Nitroglycerin, Versed, Lidocaine 1% Summary of Findings Indication: NSTEMI Access: 6Fr Right Radial Artery Catheters: [place]; EBU 3.5 guide Findings: LM - Angiographically normal LAD - Large caliber vessel, luminal irregularities; Gives off 2 moderate caliber diagonals without significant disease. Circumflex - Luminal irregularities; gives off large OM1 without significant diseased; small OM2 acutely occluded proximally RCA - Dominant, large caliber vessel with 20% early-mid segment stenosis; distal luminal irregularities in PDA/PLB LVEDP - 9 -- PCI -- Antithrombotic therapy: Heparin, Clopidogrel Procedure: LM cannulated with EBU 3.5 guide Prowater wire passed across occlusion into superior branch of OM2 OM2 lesion predilated with 2.0 compliant balloon Dilated lesion stented with 2.5x22 IC vasodilators administered for spasm Post procedure FOX 2/3 flow, stent well expanded. Stent oversized in superior branch. Arterial Closure: TR Band Summary: 1. Severe single vessel coronary artery disease - Acutely occluded small OM2 2. Normal intracardiac filling pressure 3. Successful PCI of OM2 with 2.5 x 22 Resolute MONO Recommendations: To PCU for continued monitoring Loaded with Clopidogrel 600 mg Continue dual-antiplatelet therapy with ASA/Plavix for 1 year Continue statin, beta-liset/SUSANNE, and ASCVD risk factor modification including smoking cessation Consult cardiac Rehab Hemodynamics Rest Ao: 107/77/91 Final Ao: 101/72/86 LV: 104/9 Recommendations PCI without planned CABG Specimens None Radiation Exposure (mGy) 3481 Contrast (mls) 195 Fluids (cc crystalloids) 120 Drains None Anesthesia Moderate (19:21 - 20:17) Procedural Complication(s) None Disposition PCU ACC Data Cardiac Status Clinical evaluation leading to the procedure CAD Presntation: Non STEMI Anginal Classification: CCS IV Heart Failure: No, NYHA Class: CCS I Cardiogenic Shock w/in 24Hrs: No Cardiac Arrest w/in 24Hrs: No Imaging studies past 6 months: Yes Stress studies past 6 months: No Standard Exercise Stress Test: No Stress Echocardiogram: No Stress Testing w/SPECT MPI: No Cardiac CTA: No Coronary Anatomy Dominant: Right Left Main (% Stenosis): Normal LAD (% Stenosis): Normal Circumflex (% Stenosis): Normal OM2 (% Stenosis): Proximal (100) RCA (% Stenosis): Mid (20) Closure Device Percutaneous Entry Location: Radial Closure Device: Radial Band Recommendations: PCI without planned CABG PCI Indication: PCI for high risk Non-STEMI Lesion Segment Name: OM2 Culprit Artery: Yes Stenosis Prior to Rx (%): 100 Chronic Total Occlusion: No IVUS: No Pre-Procedure FOX Flow: 0 Previously Treated Lesion: No Lesion Complexity: Non-High/Non-C Lesion Length (mm): 15 Thrombus Present: Yes Bifurcation Lesion: No Guidewire Across Lesion: Yes Guidewire: Stenosis Post-Procedure (%): 0 Post-Procedure FOX Flow: 2 Device(s) Deployed: Yes Intraprocedure Events Significant Dissection: No Perforation: No
--- NOTE | 2016-10-16 21:13 | CARDIOLOGY CONSULTATION ---
DATE OF CONSULTATION: 10/16/2016 CONSULTATION REQUESTED BY: Dr. Alvarez. REASON FOR CONSULTATION: NSTEMI HISTORY OF PRESENT ILLNESS: Mr. Garcia is a 46-year-old man with no significant past medical history, who was admitted overnight in the setting of epigastric discomfort, and found to have an NSTEMI. The patient has been noting epigastric discomfort for approximately the last 48 hours. This had been intermittent, lasting approximately 6 hours and then being off for periods of time, seemed to be somewhat worse with food, was associated with some nausea, no significant shortness of breath, diaphoresis or other associated symptoms. Due to progressive and persistent symptoms, the night of presentation he eventually went to an urgent care, where he was noted to have an EKG with some biphasic T waves in V3 and through V4 and as a result was sent to the Emergency Department for further evaluation. Upon arrival here, the patient was hemodynamically stable. Initial EKG was unremarkable. Initial troponin was positive at 2.1. He was started on heparin, received aspirin and nitropatch before being admitted to telemetry. Telemetry has been unremarkable since admission. PAST MEDICAL HISTORY: 1. Hypertension. 2. No other significant cardiac risk factors, no prior surgeries. FAMILY HISTORY: No history of premature coronary artery disease. SOCIAL HISTORY: He occasionally smokes maybe one pack per month. Denies any illicit drug use. Drinks about 12 beers per week. He is , lives with his and is currently employed. ALLERGIES: No known drug allergies. HOME MEDICATIONS: 1. Losartan 50 mg daily. 2. Multivitamin. 3. [place] 3 fatty acids. REVIEW OF SYSTEMS: A 10-point review of systems was complete and otherwise negative unless listed in HPI. PHYSICAL EXAMINATION: VITAL SIGNS: Temperature 36.7, pulse 79, blood pressure 137/86, satting 96% on room air. GENERAL: The patient appears comfortable, in no acute distress. HEENT: Sclerae are anicteric. Oropharynx is clear. Mucous membranes are moist. NECK: Supple with no lymphadenopathy. LUNGS: Clear to auscultation bilaterally. CARDIAC: He has a regular rate and rhythm with no murmurs, rubs or gallops. ABDOMEN: Soft, nontender, nondistended with positive bowel sounds. EXTREMITIES: Warm. He has no significant lower extremity edema. SKIN: Shows no rashes or lesions. NEUROLOGIC: Nonfocal. PSYCHIATRIC: He is alert and oriented x3 and appropriate. LABORATORY DATA: Sodium 140, potassium 3.9, BUN 10, creatinine of 0.9. LFTs within normal limits. Initial troponin is 2.1 peaked at 5.56 and it subsequently trended down to 4.55. White blood cell count 10.7, hemoglobin 14.8, platelets of 293. INR of 1.0. UA unremarkable. IMAGING DATA: Chest x-ray, no acute cardiopulmonary process. EKG shows sinus rhythm with no significant ST abnormalities. Echocardiogram showed normal LV function with EF of 60-65%, LV was mildly dilated. There was grade 1 diastolic dysfunction, but no regional wall motion abnormalities. IMPRESSION AND PLAN: 1. Non-ST elevation myocardial infarction. 2. Hypertension. Mr. Smith is here with epigastric discomfort for the last 48 hours, found to have elevated troponin consistent with an non-ST elevation myocardial infarction. With the patient's current presentation, further risk of adverse event is elevated and the further risk stratification should be undertaken with a cardiac catheterization. Discussed risks, benefits, and alternatives to the procedure with the patient and he is willing to proceed. We will plan to perform the procedure via right radial artery later today. In the interim, continue aspirin, statin, beta liset, SUSANNE inhibitor and heparin infusion. Further recommendations pending cardiac catheterization. Thank you for allowing us to participate in the care of this patient. DIALLO
[2016-10-16] MEDS ORDERED: SODIUM CHLORIDE 0.9% 1000ML 1,000 ML IV SCH (21:30)
[2016-10-17] VITALS (7 sets, daily range): BP systolic 120–154; BP diastolic 72–81; PULSE 74–86; TEMP 36.6–36.8; O2SAT 96–99
[2016-10-17 06:15] LABS: BASO % 0.4 %; BASO ABS # 0.05 K/uL (0-0.2); COMPLETE YES; EOS % 1.3 %; HEMATOCRIT 45.3 % (42-52); IG% 0.4 %; LYMPH ABS # 2.68 K/uL (1.2-3.4); MEAN CELL VOLUME 89.9 fL (80-100); MEAN CORPUSCULAR HEMOGLOBIN 29.6 pg (25-34); MEAN CORPUSCULAR HGB CONC 32.9 g/dl (32-36); MONO % 8.3 %; NEUT % 66.6 %; PLATELET COUNT 267 K/uL (130-400); RED BLOOD COUNT 5.04 M/uL (4.7-6.1); WHITE BLOOD COUNT 11.63 K/uL (4.8-10.8)
[2016-10-17 06:50] LABS: CALCIUM 8.6 mg/dl (8.5-10.1); CREATININE 0.81 mg/dl (0.60-1.40); POTASSIUM 4.2 mmol/L (3.5-5.1)
[2016-10-17] MEDS: METOPROLOL TARTRATE 25 MG TAB PO SCH (07:55)
[2016-10-17] MEDS: ASPIRIN 81 MG ECTAB PO SCH (07:55)
[2016-10-17] MEDS: ATORVASTATIN 40 MG TAB PO SCH (07:56)
[2016-10-17] MEDS: LOSARTAN POTASSIUM 50 MG TAB PO SCH (07:56)
[2016-10-17] MEDS: CEROVITE ADV FORMULA TAB PO SCH (07:56)
[2016-10-17] MEDS: OMEGA-3 (PURIFIED FISH OIL) 1 GM CAP PO SCH (07:56)
[2016-10-17] MEDS ORDERED: CLOPIDOGREL BISULFATE 75 MG TAB PO SCH (09:00)
--- NOTE | 2016-10-17 10:33 | Family Medicine Progress Note ---
Progress Note Date of Service Oct 17, 2016. Subjective Pt evaluation today including: conversation w/ patient, physical exam, chart review, lab review, review of studies, conversation w/ [employer] consultant, review of inpatient medication list Pain: denies pain Voiding: no voiding problems Patient is s/p PCI and MONO placement. POD 1. He has no current complaints. He denies CP , SOB , palpitation, presyncope, syncope Constitutional: No fever, No chills, No weakness Respiratory: No cough, No shortness of breath Cardiovascular: No chest pain, No edema, No palpitations Abdomen: No pain, No nausea, No vomiting Male : No dysuria, No urinary frequency Neurologic: No weakness Skin: No rash, No itch Medications Current Inpatient Medications Medications (Trade) Dose Ordered Sig/Yared Route Start Time Stop Time Status Last Admin Dose Admin Acetaminophen (Tylenol Tab) 650 mg Q4H PRN PO 10/16/16 00:45 11/15/16 00:44 Al Hydrox/Mg Hydrox/Simethicone (Maalox Max Susp) 15 ml Q4H PRN PO 10/16/16 00:45 11/15/16 00:44 Magnesium Hydroxide (Milk Of Magnesia Susp) 30 ml Q12H PRN PO 10/16/16 00:45 11/15/16 00:44 Ondansetron HCl (Zofran Inj) 4 mg Q6H PRN IV 10/16/16 00:45 11/15/16 00:44 Nitroglycerin (Nitrostat Tab) 0.4 mg UD PRN SL 10/16/16 00:45 11/15/16 00:44 Aspirin (Ecotrin Tab) 81 mg QAM PO 10/16/16 09:00 11/15/16 08:59 10/17/16 07:55 81 MG Polyethylene (Miralax Powder Packet) 17 gm DAILY PRN PO 10/16/16 00:45 11/15/16 00:44 Losartan Potassium (coZAAR TAB) 50 mg DAILY PO 10/16/16 09:00 11/15/16 08:59 10/17/16 07:56 50 MG Multivitamins/ Minerals (Multivitamin W/ Minerals Tab) 1 tab DAILY PO 10/16/16 09:00 11/15/16 08:59 10/17/16 07:56 1 TAB Sodium Chloride ([place] Nasal [place]) 1 sprays PRN PRN JAMA 10/16/16 00:45 11/15/16 00:44 Fish Oil ([place]-3 (Purified Fish Oil) Cap) 2 gm DAILY PO 10/16/16 09:00 11/15/16 08:59 10/17/16 07:56 2 GM Labetalol HCl (Normodyne IV) 5 mg Q4H PRN IV 10/16/16 00:45 11/15/16 00:44 10/16/16 02:54 5 MG Atorvastatin Calcium (Lipitor Tab) 40 mg QAM PO 10/16/16 09:00 11/15/16 08:59 10/17/16 07:56 40 MG Metoprolol Tartrate (Lopressor Tab) 25 mg BID PO 10/16/16 09:45 11/15/16 09:44 10/17/16 07:55 25 MG Clopidogrel Bisulfate (plAVix TAB) 75 mg QAM PO 10/17/16 09:00 11/16/16 08:59 10/17/16 07:55 75 MG Objective Vital Signs Date Time Temp Pulse Resp B/P (MAP) Pulse Ox O2 Delivery O2 Flow Rate FiO2 10/17/16 08:17 36.8 86 16 125/81 (96) 98 10/17/16 08:10 Room Air 10/17/16 04:00 Room Air 10/17/16 03:51 36.6 74 18 128/77 (94) 96 Room Air 10/17/16 02:30 36.7 76 18 124/79 (94) 96 Room Air 10/17/16 01:27 36.7 75 18 120/72 (88) 97 Room Air 10/17/16 00:30 74 18 121/77 (92) 96 Room Air 10/16/16 23:59 Room Air 10/16/16 23:30 36.6 78 20 123/76 (92) 95 Room Air 10/16/16 22:29 83 18 118/76 (90) 96 10/16/16 21:59 36.5 84 18 118/74 (89) 96 Room Air 10/16/16 21:27 78 20 112/74 (87) 93 Room Air 10/16/16 21:12 80 18 120/78 (92) 94 Room Air 10/16/16 20:57 93 18 123/85 (98) 94 Room Air 10/16/16 20:42 36.8 84 18 115/76 (89) 91 Room Air 10/16/16 20:32 81 16 122/80 (94) 96 Room Air 10/16/16 20:27 80 16 124/85 (98) 96 Room Air 10/16/16 20:22 81 16 121/71 (88) 96 Room Air 10/16/16 20:17 83 16 120/76 (91) 99 Mask 3 10/16/16 20:00 Room Air 10/16/16 16:00 Room Air 10/16/16 15:14 36.7 79 15 137/86 (103) 96 Room Air 10/16/16 12:00 Room Air 10/16/16 11:28 36.7 78 18 134/81 (98) 96 Room Air Physical Exam General Appearance: WD/WN, no apparent distress Eyes: PERRL, EOMI Neck: supple, no JVD, trachea midline Respiratory/Chest: lungs clear, normal breath sounds, no respiratory distress Cardiovascular: regular rate, rhythm, no edema, no murmur Abdomen: normal bowel sounds, non tender, soft Extremities: no pedal edema, no calf tenderness Neurologic/Psychiatric: alert, normal mood/affect Skin: warm/dry, no rash Laboratory Results Results Past 24 Hours Test 10/16/16 13:11 10/16/16 18:09 10/16/16 19:49 10/16/16 20:05 Range/Units Activated Partial Thromboplast Time 73.1 21.0-31.0 SECONDS Partial Thromboplastin Ratio 2.8 Total Creatine Kinase 246 204 39-308 U/L Creatine Kinase MB 14.8 11.4 0.5-3.6 ng/ml Creatine Kinase MB Ratio 6.0 5.6 0-3.0 Troponin I 4.850 4.550 0-0.045 ng/ml Kaolin Activated Coagulation Time 180 224 94-140 SECONDS Test 10/17/16 05:41 Range/Units White Blood Count 11.63 4.8-10.8 K/uL Red Blood Count 5.04 4.7-6.1 M/uL Hemoglobin 14.9 14.0-18.0 g/dL Hematocrit 45.3 42-52 % Mean Corpuscular Volume 89.9 80-100 fL Mean Corpuscular Hemoglobin 29.6 25-34 pg Mean Corpuscular Hemoglobin Concent 32.9 32-36 g/dl Platelet Count 267 130-400 K/uL Mean Platelet Volume 9.0 7.4-10.4 fL Neutrophils (%) (Auto) 66.6 % Lymphocytes (%) (Auto) 23.0 % Monocytes (%) (Auto) 8.3 % Eosinophils (%) (Auto) 1.3 % Basophils (%) (Auto) 0.4 % Neutrophils # (Auto) 7.73 1.4-6.5 K/uL Lymphocytes # (Auto) 2.68 1.2-3.4 K/uL Monocytes # (Auto) 0.97 0.11-0.59 K/uL Eosinophils # (Auto) 0.15 0-0.5 K/uL Basophils # (Auto) 0.05 0-0.2 K/uL RDW Standard Deviation 44.6 36.4-46.3 fL RDW Coefficient of Variation 13.6 11.5-14.5 % Immature Granulocyte % (Auto) 0.4 % Immature Granulocyte # (Auto) 0.05 0.00-0.02 K/uL Sodium Level 140 136-145 mmol/L Potassium Level 4.2 3.5-5.1 mmol/L Chloride Level 107 98-107 mmol/L Carbon Dioxide Level 28 21-32 mmol/L Anion Gap 5.0 3-11 mmol/L Blood Urea Nitrogen 11 7-18 mg/dl Creatinine 0.81 0.60-1.40 mg/dl Est Creatinine Clear Calc Drug Dose 127.1 ml/min Estimated GFR () 121.8 Estimated GFR (Non- 105.1 BUN/Creatinine Ratio 14.0 10-20 Random Glucose 95 70-99 mg/dl Calcium Level 8.6 8.5-10.1 mg/dl Assessment and Plan 46 yo M with Hx of HTN, Tobacco use, presented with epigastric pain admitted with NSTEMI, symptoms resolved s/p PCI and MONO placement, currently asx NSTEMI -CP resolved s/p PCI (10/16) Patient is s/p PCI after findings of: Severe single vessel coronary artery disease, Acutely occluded small OM2 Recommendations per Cardiology: Maintain in PCU Continue ASA/Plavix for 1 year Continue statin, beta-liset/SUSANNE, and ASCVD risk factor modification including smoking cessation cardiac Rehab consulted by cardiology HTN -c/w losartan Lung granuloma -stable per CXR compared to previous 2014 -outpatient /fu Resident Physician Supervision Note: I interviewed and examined the patient. Discussed with Dr. Ferreira and agree with findings and plan as documented in the note. Any exceptions or clarifications are listed here: Upon my examination, the patient denies chest pain or shortness of breath. He spoken with cardiology who was explained the findings on the catheterization and subsequent intervention. PLAN 1) Discharge today 2) high-dose statin therapy 3) aspirin 81 mg daily 4) beta liset, Toprol-XL 25 mg daily The patient monitors his blood pressure at home and he will continue to do so 5) continue his home dose of angiotensin receptor liset 6) Plavix any 75 mg daily; he will continue aspirin 81 mg daily along with Plavix 75 mg daily for a period of 1 year 7) follow-up with both his PCP (Jeanette) and cardiology. 8) we have discussed the signs and symptoms of acute coronary syndrome; he should go to the emergency department by way of EMS should he have recurrent symptoms. Documented By: Sb Alvarez Continued [facility] stay due to: other (s/p pci) Discharge planning: home Resident Tracking Resident Involvement: Resident Care Provided Care Provided: Adult Hospital Medicine
--- NOTE | 2016-10-17 12:20 | Cardiology Follow-Up ---
Subjective Subjective Date of Service: Oct 17, 2016. Pt evaluation today including: conversation w/ patient, conversation w/ family , physical exam, chart review, lab review, review of studies, review of inpatient medication list Additional Details: Patient feeling well. No chest pain overnight. No wrist pain. Up walking in halls without issues. Tele reviewed -- no events Problem List Medical Problems: (1) NSTEMI (non-ST elevated myocardial infarction) Status: Acute Review of Systems Constitutional: No fever, No chills Respiratory: No cough, No shortness of breath Cardiac: No chest pain, No edema, No palpitations Abdomen: No pain, No nausea, No vomiting Male : No dysuria, No urinary frequency Neurologic: No weakness Skin: No rash, No itch Objective Vital Signs Last Vital Signs Documentation Date Time Temp Pulse Resp B/P (MAP) Pulse Ox O2 Delivery O2 Flow Rate FiO2 10/17/16 12:00 Room Air 10/17/16 11:49 36.6 77 18 154/73 (100) 99 10/16/16 20:17 3 Physical Exam: General Appearance: no apparent distress Neck: supple, no JVD, trachea midline Respiratory/Chest: lungs clear, normal breath sounds, no respiratory distress Cardiovascular: regular rate, rhythm, no edema, no murmur Abdomen: normal bowel sounds, non tender, soft Extremities: no pedal edema, no calf tenderness, + pertinent finding (right radial artery minimal ecchymosis, no hematoma. intact distal pulse, sensation. ) Neurologic/Psychiatric: alert, normal mood/affect Skin: warm/dry, no rash Assessment and Plan 1. NSTEMI - s/p PCI to small OM2 2. Hypertension 3. Tobacco use Remains chest pain free, hemodynamically stable, electrically stable. No access site complications. Labs stable -- Continue DAPT with ASA/Plavix for at least 1 year -- Continue beta-liset/ARB -- high intensity statin. -- tobacco cessation From a cardiac standpoint OK for discharge later today. Can follow-up with me in 2-3 weeks. Will discuss cardiac rehab. Continued [facility] stay due to: other (s/p pci) Discharge planning: home Medications: Current Inpatient Medications Medications (Trade) Dose Ordered Sig/Yared Route Start Time Stop Time Status Last Admin Dose Admin Acetaminophen (Tylenol Tab) 650 mg Q4H PRN PO 10/16/16 00:45 11/15/16 00:44 Al Hydrox/Mg Hydrox/Simethicone (Maalox Max Susp) 15 ml Q4H PRN PO 10/16/16 00:45 11/15/16 00:44 Magnesium Hydroxide (Milk Of Magnesia Susp) 30 ml Q12H PRN PO 10/16/16 00:45 11/15/16 00:44 Ondansetron HCl (Zofran Inj) 4 mg Q6H PRN IV 10/16/16 00:45 11/15/16 00:44 Nitroglycerin (Nitrostat Tab) 0.4 mg UD PRN SL 10/16/16 00:45 11/15/16 00:44 Aspirin (Ecotrin Tab) 81 mg QAM PO 10/16/16 09:00 11/15/16 08:59 10/17/16 07:55 81 MG Polyethylene (Miralax Powder Packet) 17 gm DAILY PRN PO 10/16/16 00:45 11/15/16 00:44 Losartan Potassium (coZAAR TAB) 50 mg DAILY PO 10/16/16 09:00 11/15/16 08:59 10/17/16 07:56 50 MG Multivitamins/ Minerals (Multivitamin W/ Minerals Tab) 1 tab DAILY PO 10/16/16 09:00 11/15/16 08:59 10/17/16 07:56 1 TAB Sodium Chloride ([place] Nasal [place]) 1 sprays PRN PRN JAMA 10/16/16 00:45 11/15/16 00:44 Fish Oil ([place]-3 (Purified Fish Oil) Cap) 2 gm DAILY PO 10/16/16 09:00 11/15/16 08:59 10/17/16 07:56 2 GM Labetalol HCl (Normodyne IV) 5 mg Q4H PRN IV 10/16/16 00:45 11/15/16 00:44 10/16/16 02:54 5 MG Atorvastatin Calcium (Lipitor Tab) 40 mg QAM PO 10/16/16 09:00 11/15/16 08:59 10/17/16 07:56 40 MG Metoprolol Tartrate (Lopressor Tab) 25 mg BID PO 10/16/16 09:45 11/15/16 09:44 10/17/16 07:55 25 MG Clopidogrel Bisulfate (plAVix TAB) 75 mg QAM PO 10/17/16 09:00 11/16/16 08:59 10/17/16 07:55 75 MG Lab Results: 10/17/16 05:41 Red Blood Count 5.04, Mean Corpuscular Volume 89.9, Mean Corpuscular Hemoglobin 29.6, Mean Corpuscular Hemoglobin Concent 32.9, Mean Platelet Volume 9.0, Neutrophils (%) (Auto) 66.6, Lymphocytes (%) (Auto) 23.0, Monocytes (%) (Auto) 8.3, Eosinophils (%) (Auto) 1.3, Basophils (%) (Auto) 0.4, Neutrophils # (Auto) 7.73, Lymphocytes # (Auto) 2.68, Monocytes # (Auto) 0.97, Eosinophils # (Auto) 0.15, Basophils # (Auto) 0.05 10/17/16 05:41 Test 10/16/16 13:11 10/16/16 18:09 10/16/16 20:05 10/17/16 05:41 Activated Partial Thromboplast Time 73.1 SECONDS (21.0-31.0) Partial Thromboplastin Ratio 2.8 Total Creatine Kinase 204 U/L (39-308) Creatine Kinase MB 11.4 ng/ml (0.5-3.6) Creatine Kinase MB Ratio 5.6 (0-3.0) Troponin I 4.550 ng/ml (0-0.045) Kaolin Activated Coagulation Time 224 SECONDS (94-140) White Blood Count 11.63 K/uL (4.8-10.8) Red Blood Count 5.04 M/uL (4.7-6.1) Hemoglobin 14.9 g/dL (14.0-18.0) Hematocrit 45.3 % (42-52) Mean Corpuscular Volume 89.9 fL (80-100) Mean Corpuscular Hemoglobin 29.6 pg (25-34) Mean Corpuscular Hemoglobin Concent 32.9 g/dl (32-36) Platelet Count 267 K/uL (130-400) Mean Platelet Volume 9.0 fL (7.4-10.4) Neutrophils (%) (Auto) 66.6 % Lymphocytes (%) (Auto) 23.0 % Monocytes (%) (Auto) 8.3 % Eosinophils (%) (Auto) 1.3 % Basophils (%) (Auto) 0.4 % Neutrophils # (Auto) 7.73 K/uL (1.4-6.5) Lymphocytes # (Auto) 2.68 K/uL (1.2-3.4) Monocytes # (Auto) 0.97 K/uL (0.11-0.59) Eosinophils # (Auto) 0.15 K/uL (0-0.5) Basophils # (Auto) 0.05 K/uL (0-0.2) RDW Standard Deviation 44.6 fL (36.4-46.3) RDW Coefficient of Variation 13.6 % (11.5-14.5) Immature Granulocyte % (Auto) 0.4 % Immature Granulocyte # (Auto) 0.05 K/uL (0.00-0.02) Anion Gap 5.0 mmol/L (3-11) Est Creatinine Clear Calc Drug Dose 127.1 ml/min Estimated GFR () 121.8 Estimated GFR (Non- 105.1 BUN/Creatinine Ratio 14.0 (10-20) Calcium Level 8.6 mg/dl (8.5-10.1)
[2016-10-17] MEDS ORDERED: PLV75 PO (13:00)
[2016-10-17] MEDS ORDERED: METO25TA3 PO (13:00)
[2016-10-17] MEDS ORDERED: ATOR-26 PO (13:00)
[2016-10-17] MEDS ORDERED: ASPEC81 PO (13:00)
--- NOTE | 2016-10-17 13:02 | Discharge Instructions ---
Discharge Instructions Date of Service Oct 17, 2016. Admission Reason for Admission: Chest Pain,Elevated Troponin Discharge Discharge Diagnosis / Problem: NSTEMI Discharge Goals Goal(s): Improve disease control Activity Recommendations Activity Limitations: per Instructions/Follow-up section Follow up with Dr. Dela Cruz within 2-3 weeks. Follow up with your PCP in 1-2 weeks. It is important to STOP smoking, please discuss with your PCP if you need assistance. Continue the aspirin and plavix for one year. Your statin has been increased. Instructions / Follow-Up Instructions / Follow-Up Home Care: * Take your medications exactly as directed. Don't skip doses. * Remember that recovery after a heart attack takes time. Plan to rest for at lease 4-8 weeks while you recover. Then return to normal activity when your doctor says it's okay. * Ask your doctor about joining a heart rehabilitation program. * Tell your doctor if you are feeling depressed. Feelings of sadness are common after a heart attack, but it is important that you speak to someone if you are feeling overwhelmed by these feelings. * If you are having chest pain, call 911 for an ambulance. Do NOT drive yourself to the hospital. * Ask your family members to learn CPR. * Learn to take your own blood pressure and pulse. Keep a record of your results. Ask your doctor when you should seek emergency medical attention. He or she will tell you which blood pressure reading is dangerous. Lifestyle Changes: * Maintain a healthy weight. Get help to lose any extra pounds. * Cut back on salt. * Limit canned, dried, packaged, and fast foods. * Don't add salt to your food. * Season foods with herbs instead of salt when you cook. * Break the smoking habit. Enroll in a stop-smoking program to improve your chances of success. * Limit fatty foods. * Check your lipid levels regularly. (Your doctor can show you how to do this.) * Build up your activity according to your doctor's recommendation. * Ask your doctor when it's okay to resume sexual activity. * Tell your doctor about any erectile dysfunction (ED) medication you are taking. Some ED medications are not safe if you take certain heart medications. * Try to manage stress. Follow Up: It is important for you to keep your follow up appointments with your medical provider. Current Hospital Diet Patient's current hospital diet: AHA Diet (Heart Healthy), Regular Diet Discharge Diet Recommended Diet: AHA Diet (Heart Healthy) Pending Studies Studies pending at discharge: no Laboratory Results Hemoglobin A1c Test 10/16/16 06:28 Range/Units Estimated Average Glucose 114 mg/dl Hemoglobin A1c 5.6 4.5-5.6 % Lipid Panel Test 10/16/16 06:28 Range/Units Triglycerides Level 236 H 0-150 mg/dl Cholesterol Level 210 H 0-200 mg/dl HDL Cholesterol 37 mg/dl Cholesterol/HDL Ratio 5.7 LDL Cholesterol, Calculated 126 mg/dl Medical Emergencies . Who to Call and When: Medical Emergencies: If at any time you feel your situation is an emergency, please call 911 immediately. Call 911 immediately or go to your nearest Emergency Room if you experience any of the following: Warning Signs and Symptoms of a Heart Attack * Chest pain that is not relieved by medication * Shortness of breath . Non-Emergent Contact Non-Emergency issues call your: Primary Care Provider . . "Provider Documentation" section prepared by Nicolasa Sethi. . AMI Core Measures Reason no ASA as I/P: Treatment provided - N/A Reason no ASA at D/C: Treatment provided - N/A Reason no statin as I/P: Treatment provided - N/A Reason no statin at D/C: Treatment provided - N/A VTE Core Measure Inpt VTE Proph given/why not?: Other Anticoagulation (heparin infusion)
--- NOTE | 2016-10-18 05:18 | Discharge Summary ---
Discharge Summary Date of Service Oct 18, 2016. (Velasquez Ferreira MD) Discharge Summary Admission Date: Oct 16, 2016 at 00:37 Discharge Date: Oct 17, 2016 Discharge Disposition: Home Principal Diagnosis: NSTEMI Procedures: CHEST ONE VIEW PORTABLE HISTORY: Evaluate Fever/Sepsis COMPARISON: Chest 05/17/2013. FINDINGS: Cardiac silhouette remains top normal in size no pleural effusions. No pneumothorax. Punctate calcified granuloma within the left lower lobe, unchanged. No focal lung consolidations to suggest pneumonia. No evidence for pulmonary edema. IMPRESSION: No significant change compared to the prior study. No acute process. Cardiac Catheterization Severe single vessel coronary artery disease, Acutely occluded small OM2 Drug Eluding Stent placement Consultations: Cardiology (Velasquez Ferreira MD) Medication Reconciliation New Medications: Atorvastatin (Lipitor) 80 Mg Tab 80 MG PO DAILY for 30 Days, #30 TAB Metoprolol Succ (Toprol Xl) (Toprol-Xl) 25 Mg Tabcr 25 MG PO DAILY for 30 Days, #30 TAB Aspirin (Aspirin EC Low Dose) 81 Mg Ectab 81 MG PO QAM for 30 Days, #30 TAB Clopidogrel Bisulfate (Clopidogrel) 75 Mg Tab 75 MG PO QAM for 30 Days, #30 TAB Continued Medications: Losartan Potassium (Cozaar) 50 Mg Tab 50 MG PO DAILY, TAB Multivitamins/Minerals (Mvi With Minerals) Tab 1 TAB PO DAILY, TAB [place]-3 Fatty Acids (Fish Oil) 1 Cap Cap 2 CAP PO DAILY Saline ([place] Nasal [place]) 0.65 % Spr 1 SPRAY JAMA PRN for congestion Discharge Exam Constitutional: No fever, No chills, No weakness Respiratory: No cough, No shortness of breath Cardiovascular: No chest pain, No edema, No palpitations Abdomen: No pain, No nausea, No vomiting Male : No dysuria, No urinary frequency Neurologic: No weakness Skin: No rash, No itch General Appearance: WD/WN, no apparent distress Eyes: PERRL, EOMI Neck: supple, no JVD, trachea midline Respiratory/Chest: lungs clear, normal breath sounds, no respiratory distress Cardiovascular: regular rate, rhythm, no edema, no murmur Abdomen: normal bowel sounds, non tender, soft Extremities: no pedal edema, no calf tenderness Neurologic/Psychiatric: alert, normal mood/affect Skin: warm/dry, no rash (Velasquez Ferreira MD) Hospital Course HPI This is a pleasant 46-year-old gentleman with a history of hypertension, but otherwise no cardiac history who presents to the ED after 2 days of epigastric pain. States that the pain started quite suddenly 2 days ago. He describes 10/10 burning-type pain in the epigastrium. States that it was worse prior to meals, and that food in fact made it better. Cannot correlate any specific kinds of food, and no correlation to fatty foods. Sometimes putting a pillow on his back and arching his back makes the pain better. Today however he noted that the pain actually got worse after his dinner and given the persistence of the pain decided to come to the emergency room for further evaluation. Currently his pain is completely gone. States his exercise tolerance is generally good. 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 He also states that he does in home exercises. He denies ever having exertional chest pain or shortness of breath. His other modifiable includes risk factors hypertension, for which she takes losartan. He smokes a total of 1 pack per month, has been doing this for approximately last 20 years. He states that he has "borderline" cholesterol levels, and is not a diabetic. He denies ever being evaluated for coronary disease, he's never had a cardiac catheterization, CABG, or echocardiogram. He his only other complaint at this time is that 2 weeks ago he had URI type symptoms including cough and nasal congestion. However the symptoms have been resolving and he is doing well from the standpoint at this time. He was seen by [facility] earlier on this evening. An EKG was notable for anterior T-wave inversions. There are no acute ST elevations. In the ED he was treated with 325 aspirin chew, 0.4 mg sublingual nitroglycerin. A troponin level was elevated at 2.1, and essentially started on a heparin infusion she currently has running. Course: IN ED, patient was found to be Hyperensive ( on Losartan) with an elevated troponin of of 2.12. EKG showed NSR with rate of 94. He was asympptomatic on arrival to ED. HE was given ASA 325, IV Heparin and admitted for NSTEMI. Echo was ordered showing The left ventricle is mildly dilated. Left ventricular systolic function was normal, and Grade I diastolic dysfunction, (abnormal relaxation pattern) and Borderline left atrial enlargement. He was placed on continued on ASA, Full dose Heparin,and started on Atorvastatin 40 mg daily, Metoprolol 25mg BID, NTG. Cardiology was consulted. 6hr Troponin increased to 5.56. Patient was sent to Cardiac electro plater. He was found to have evere single vessel coronary artery disease, Acutely occluded small OM2. PCI was performed with Drug eluding stent. S/p procedure, troponins trended down. Patietnt remained asx following procedure. He was eventually discharged home with High dose statin therapy Toprol-XL 25 daily, ASA 81mg daily and Plavix 75 mg daily(x 1 yr) with Cardiology followup Total Time Spent: Less than 30 minutes This includes examination of the patient, discharge planning, medication reconciliation, and communication with other providers. (Velasquez Ferreira MD) Resident Physician Supervision Note: I was present with Dr. Ferreira during the history and exam. I discussed the case with the resident and agree with the findings and plan as documented in the note. Any exceptions or clarifications are listed here: [None] Documented By: Sb Alvarez Total Time Spent: Less than 30 minutes (Sb Alvarez,Regina.OJay) Discharge Instructions Please refer to the electronic Patient Visit Report (Discharge Instructions) for additional information. (Velasquez Ferreira MD) Additional Copies To Jaret Reid D.O.Int.Med.
[2016-12-12] MEDS ORDERED: TRIA1SPR4 (15:05)
[2016-12-12] MEDS ORDERED: ATOR-26 PO (15:05)
[2016-12-12] MEDS ORDERED: TPRSR/25 PO (15:05)
== END 2016-10-17 13:46 | disposition home or self-care (01) | DRG 247 ==
LOC: C.EDB 20:09 → C.2E 10-16 00:37 → ENRESERV 10-16 00:48
PROVIDERS: ADMIT Student in an Organized Health Care Education/Training Program; ATTEND Family Medicine
PROC: B2111ZZ Fluoroscopy of Multiple Coronary Arteries using Low Osmolar Contrast (ICD-10-PCS; principal; 2016-10-16 19:00)
PROC: 4A023N7 Measurement of Cardiac Sampling and Pressure, Left Heart, Percutaneous Approach (ICD-10-PCS; principal; 2016-10-16 19:00)
PROC: 027034Z Dilation of Coronary Artery, One Artery with Drug-eluting Intraluminal Device, Percutaneous Approach (ICD-10-PCS; principal; 2016-10-16 19:00)
PROC: B2151ZZ Fluoroscopy of Left Heart using Low Osmolar Contrast (ICD-10-PCS; principal; 2016-10-16 19:00)
DX: I21.4 Non-ST elevation (NSTEMI) myocardial infarction (principal); I25.10 Atherosclerotic heart disease of native coronary artery without angina pectoris; I10 Essential (primary) hypertension; F17.210 Nicotine dependence, cigarettes, uncomplicated; E66.3 Overweight; Z68.31 Body mass index [BMI] 31.0-31.9, adult; Z79.899 Other long term (current) drug therapy

== ENCOUNTER 2016-11-13 06:14 | Emergency (ER) | payer OTHER ==
[~2016-11-13] VITALS: Ht 175.3 cm; Wt 95.9 kg
[~2016-11-13 06:14] MED LIST changes: +ASPEC81 PO; +ATOR-26 PO; +METO25TA3 PO; +PLV75 PO
[2016-11-13 06:18] VITALS: TEMP 36.7; Ht 175.3 cm; Wt 95.9 kg
[2016-11-13 06:37] VITALS: O2SAT 99
[2016-11-13 06:51] LABS: HEMATOCRIT 46.3 % (42-52); MEAN CELL VOLUME 88.5 fL (80-100); MEAN CORPUSCULAR HEMOGLOBIN 29.8 pg (25-34); MEAN CORPUSCULAR HGB CONC 33.7 g/dl (32-36); PLATELET COUNT 285 K/uL (130-400); RED BLOOD COUNT 5.23 M/uL (4.7-6.1); WHITE BLOOD COUNT 8.13 K/uL (4.8-10.8)
[2016-11-13 06:55] LABS: BUN/CREATININE RATIO 12.2 (10-20); CALCIUM 9.5 mg/dl (8.5-10.1); CREATININE 0.96 mg/dl (0.60-1.40); POTASSIUM 3.7 mmol/L (3.5-5.1)
--- NOTE | 2016-11-13 07:15 | DIAGNOSTIC IMAGING REPORT ---
CHEST 2 VIEWS ROUTINE CLINICAL HISTORY: Chest pain. COMPARISON STUDY: Chest radiograph October 15, 2016. FINDINGS: There is no pneumothorax or pleural effusion. Cardiomediastinal silhouette is normal. A calcified left lower lobe granuloma is incidentally noted. There is no evidence of pulmonary edema. There is no consolidation. IMPRESSION: No acute cardiopulmonary findings. Electronically signed by: Yehuda Chávez M.D. 11/13/2016 7:14 AM Dictated Date/Time: 11/13/2016 7:13 AM
[2016-11-13 09:14] VITALS: BP 120/78; PULSE 75; O2SAT 96
--- NOTE | 2016-11-13 09:16 | EMERGENCY ROOM VISIT NOTE ---
History Report prepared by Marian: Keila Lauren Under the Supervision of: Dr. Miguel Hurtado M.D. First contact with patient: 06:30 Chief Complaint: CHEST PAIN Stated Complaint: CHEST DISCOMFORT S/P CATH History of Present Illness The patient is a 46 year old male who presents to the Emergency Room with complaints of resolved chest pain which started at midnight. He had a NH 1 month ago and had a stent placed. His chest pain today was similar to that chest pain. The patient had some chest pain yesterday evening which resolved with Zantac. The pain came back around midnight. He describes the pain as burning in the left side of his chest. The pain has since resolved. The pain worsens with lying down and improves with sitting up. He denies any SOB, nausea , diaphoresis, or leg pain. He has taken 81 mg aspirin today. Source of History: patient Onset: midnight Position: chest (left) Quality: burning Timing: resolved Modifying Factors (Worsening): other (lying flat) Modifying Factors (Relieving): other (sitting up) Associated Symptoms: No diaphoresis, No SOB, No nausea Note: Pt denies leg pain. Review of Systems All systems have been listed, reviewed, and are negative other than those previously mentioned. Please see Additional Medical History Sheet. Past Medical & Surgical Medical Problems: (1) Elevated troponin (2) HTN (hypertension) (3) HYPERTENSION NOS (4) Lung granuloma (5) NSTEMI (non-ST elevated myocardial infarction) Family History Cancer Diabetes mellitus Gallbladder disease Hypertension Kidney disease Kidney stones Seizures Social History Smoking Status: Never Smoker Alcohol Use: none Drug Use: none Marital Status: Housing Status: lives with significant other Occupation Status: employed Current/Historical Medications Scheduled Aspirin (Aspirin EC Low Dose), 81 MG PO QAM Atorvastatin (Lipitor), 80 MG PO DAILY Clopidogrel Bisulfate (Clopidogrel), 75 MG PO QAM Losartan Potassium (Cozaar), 50 MG PO DAILY Metoprolol Succ (Toprol Xl) (Toprol-Xl), 25 MG PO DAILY Allergies Coded Allergies: No Known Allergies (Unverified , 10/15/16) Physical Exam Vital Signs Date Time Temp Pulse Resp B/P (MAP) Pulse Ox O2 Delivery O2 Flow Rate FiO2 11/13/16 09:14 75 18 120/78 96 Room Air 11/13/16 08:01 70 18 122/76 95 Room Air 11/13/16 06:54 73 18 146/96 96 Room Air 11/13/16 06:37 77 11/13/16 06:37 99 Room Air 11/13/16 06:34 96 Room Air 11/13/16 06:29 98 Room Air 11/13/16 06:18 36.7 80 18 160/99 98 Room Air Physical Exam GENERAL: Patient awake, alert, oriented x 3. Patient follows commands. Patient does not appear toxic. Patient is adequately hydrated and well- nourished. SKIN: No erythema, pallor, cyanosis or rash HEENT: Normal head, pupils equal, reactive to light and accommodation. Oral cavity and posterior pharynx appear normal. Neck: Without adenopathy, no neck vein distention. LUNGS: Clear to auscultation. No wheezes, no rales, no rhonchi. HEART: No murmurs. No gallops. No rubs ABDOMEN: No masses, no rebound, no hepatomegaly or splenomegaly. EXTREMITIES: No signs of trauma. No pedal or pretibial edema. No calf or thigh tenderness. NEUROLOGIC: Cranial nerves II-XII within normal limits. No gross motor sensory function deficits. Medical Decision & Procedures ER Provider Diagnostic Interpretation: X ray results are stated below per my interpretation and the radiologist's interpretation. CHEST 2 VIEWS ROUTINE CLINICAL HISTORY: Chest pain. COMPARISON STUDY: Chest radiograph October 15, 2016. FINDINGS: There is no pneumothorax or pleural effusion. Cardiomediastinal silhouette is normal. A calcified left lower lobe granuloma is incidentally noted. There is no evidence of pulmonary edema. There is no consolidation. IMPRESSION: No acute cardiopulmonary findings. Electronically signed by: Yehuda Chávez M.D. 11/13/2016 7:14 AM Dictated Date/Time: 11/13/2016 7:13 AM Laboratory Results 11/13/16 06:30 11/13/16 06:30 Test 11/13/16 06:30 11/13/16 08:02 Red Blood Count 5.23 M/uL (4.7-6.1) Mean Corpuscular Volume 88.5 fL (80-100) Mean Corpuscular Hemoglobin 29.8 pg (25-34) Mean Corpuscular Hemoglobin Concent 33.7 g/dl (32-36) RDW Standard Deviation 42.6 fL (36.4-46.3) RDW Coefficient of Variation 13.2 % (11.5-14.5) Mean Platelet Volume 9.0 fL (7.4-10.4) Anion Gap 4.0 mmol/L (3-11) Est Creatinine Clear Calc Drug Dose 107.5 ml/min Estimated GFR () 107.9 Estimated GFR (Non- 93.1 BUN/Creatinine Ratio 12.2 (10-20) Calcium Level 9.5 mg/dl (8.5-10.1) Bedside Troponin I < 0.030 ng/ml (0-0.045) Laboratory results as stated above per my review. ECG Indication: chest pain Rate (beats per minute): 74 Rhythm: normal sinus Findings: no acute ischemic change, no ectopy ED Course 630: Past medical records reviewed. The patient was evaluated in room A12B. A complete history and physical examination was performed. 908: Upon reevaluation, the patient is resting comfortably. I discussed today' s findings with him. He verbalized agreement of the treatment plan. He was discharged home. Medical Decision I considered multiple diagnoses including myocardial infarction, chest wall pain , pericarditis, myocarditis, aortic emergencies, pulmonary embolism, congestive heart failure, GI causes, and other significant cardiopulmonary disorders. Medication Reconciliation: I attest that I have personally reviewed the patient' s current medication list. Blood pressure Screening: Patient was found to have normal blood pressure on screening and does not require follow up. Multiple labs, EKG and imaging were obtained. Please see above. The patient has no elevation of his troponin or changes on his EKG. Chest pain is atypical. Most likely this is GI in origin. The patient was observed for over 3 hours and felt safe to return home. The patient will continue his current medications. He is to follow-up with a family physician within the next 10 days. Impression Primary Impression: Substernal precordial chest pain Scribe Attestation The scribe's documentation has been prepared under my direction and personally reviewed by me in its entirety. I confirm that the note above accurately reflects all work, treatment, procedures, and medical decision making performed by me. Departure Information Dispostion Home / Self-Care Referrals Elvi Magaña DO (PCP) Patient Instructions My [facility] Additional Instructions Continue all her current medications as prescribed. Follow-up with a family physician as scheduled. Return here sooner if you develop more chest pain.
[2016-12-12] MEDS ORDERED: ATOR-26 PO (15:05)
[2016-12-12] MEDS ORDERED: TPRSR/25 PO (15:05)
[2016-12-12] MEDS ORDERED: TRIA1SPR4 (15:05)
== END 2016-11-13 09:28 | disposition home or self-care (01) ==
LOC: C.EDB 06:18 → C.EDA 09:28
DX: R07.2 Precordial pain (principal); I25.2 Old myocardial infarction; Z95.5 Presence of coronary angioplasty implant and graft; Z79.82 Long term (current) use of aspirin; I10 Essential (primary) hypertension; J98.4 Other disorders of lung; Z83.3 Family history of diabetes mellitus; Z82.49 Family history of ischemic heart disease and other diseases of the circulatory system; Z84.1 Family history of disorders of kidney and ureter; Z82.0 Family history of epilepsy and other diseases of the nervous system

== ENCOUNTER 2017-04-11 07:47 | Emergency (ER) | payer OTHER ==
[~2017-04-11] VITALS: Ht 175.3 cm; Wt 95.0 kg
[~2017-04-11 07:47] MED LIST changes: -METO25TA3 PO; -MULT-513 PO; -OMEGCAP2 PO; -SALI0.6510 NAE; +TPRSR/25 PO; +TRIA1SPR4
[2017-04-11 07:48] VITALS: TEMP 36.5; Ht 175.3 cm; Wt 95.0 kg
[2017-04-11] MEDS ORDERED: PRAV10TA39 PO (08:13)
[2017-04-11 08:30] LABS: BASO % 1.1 %; BASO ABS # 0.08 K/uL (0-0.2); COMPLETE YES; EOS % 2.4 %; HEMATOCRIT 46.8 % (42-52); IG% 0.3 %; LYMPH % 24.4 %; LYMPH ABS # 1.73 K/uL (1.2-3.4); MEAN CELL VOLUME 86.8 fL (80-100); MEAN CORPUSCULAR HEMOGLOBIN 29.7 pg (25-34); MEAN CORPUSCULAR HGB CONC 34.2 g/dl (32-36); MONO % 8.3 %; NEUT % 63.5 %; PLATELET COUNT 270 K/uL (130-400); RED BLOOD COUNT 5.39 M/uL (4.7-6.1)
[2017-04-11 08:47] LABS: ALT/SGPT 30 U/L (12-78); BLOOD UREA NITROGEN 10 mg/dl (7-18); BUN/CREATININE RATIO 10.6 (10-20); CALCIUM 9.1 mg/dl (8.5-10.1); CARBON DIOXIDE 30 mmol/L (21-32); CHLORIDE 102 mmol/L (98-107); CREATININE 0.98 mg/dl (0.60-1.40); GLUCOSE 96 mg/dl (70-99); MAGNESIUM 2.1 mg/dl (1.8-2.4); POTASSIUM 4.3 mmol/L (3.5-5.1); SODIUM 136 mmol/L (136-145)
--- NOTE | 2017-04-11 08:48 | DIAGNOSTIC IMAGING REPORT ---
CHEST 2 VIEWS ROUTINE CLINICAL HISTORY: chest pressure dyspnea COMPARISON STUDY: 11/13/2016 FINDINGS: The bones soft tissues and hemidiaphragms are normal. The cardiomediastinal silhouette is normal. The lungs are clear. The pulmonary vasculature is normal. IMPRESSION: Negative chest. The above report was generated using voice recognition software. It may contain grammatical, syntax or spelling errors. Electronically signed by: Bear Portillo M.D. 04/11/2017 8:46 AM Dictated Date/Time: 04/11/2017 8:46 AM
[2017-04-11 08:51] VITALS: BP 141/85; PULSE 80; O2SAT 95
[2017-04-11 08:58] LABS: ALB/GLOB RATIO 1.1 (0.9-2); ALKALINE PHOSPHATASE 87 U/L (45-117); AST/SGOT 16 U/L (15-37)
--- NOTE | 2017-04-11 09:25 | EMERGENCY ROOM VISIT NOTE ---
History First contact with patient: 07:57 Chief Complaint: CARDIAC ASSESSMENT Stated Complaint: CHEST PRESSURE,BACK PAIN Nursing Triage Summary: pt reports had a cardiac stent placed in September and has had mid back pain intermittently since that time pt reports " I have myself so worked up about it that I just want it checked out" I talked to my PCP 1 day ago and I think I need some anxiety meds pt deneis cpor sob today History of Present Illness The patient is a 47 year old male who presents to the Emergency Room with complaints of chest and back pain intermittently 1 month. The patient states he had a stent placed and a coronary artery in September. Since then, he has been having intermittent pain in the middle of his back and in the center of his chest. The patient states he did have an appointment in February for follow-up with Dr. Dela Cruz, but was not experiencing the discomfort at that time, said did not say anything. He did discuss his anxiety with Dr. Dela Cruz, who did recommend treatment at that time. The patient states he refused anxiety medication at that time, because he did not feel that he needed it. The patient states the pain he is experiencing comes and goes, and lasts only a few seconds to a few minutes at a time. He states there are some days he goes without having any pain, but some days he is having pain frequently. He states recently driving seems to make the pain worse, and he has been feeling very anxious. The patient states he believes that the anxiety seems to come prior to the chest and back pain. He feels that he is getting himself worked up, and states his anxiety seems to worsen when this occurs. The patient denies any pain or discomfort with physical activity, and in fact states he feels better when he stays active, and has been shoveling snow and loading a trailer over the past few days without any symptoms. The patient denies any dyspnea associated with the chest pain. He denies any leg swelling or edema. The patient describes the pain as "like a knot". He denies a ripping or tearing sensation, especially in the back. He denies any paresthesias or abdominal pain. Review of Systems A complete 10 point review of systems was reviewed with the patient with pertinent positives and negatives as per history of present illness. All else were negative. Past Medical/Surgical History Medical Problems: (1) Elevated troponin (2) HTN (hypertension) (3) HYPERTENSION NOS (4) Lung granuloma (5) NSTEMI (non-ST elevated myocardial infarction) Family History Cancer Diabetes mellitus Gallbladder disease Hypertension Kidney disease Kidney stones Seizures Social History Smoking Status: Never Smoker Alcohol Use: none Drug Use: none Marital Status: Housing Status: lives with significant other Occupation Status: employed Current/Historical Medications Scheduled Aspirin (Aspirin EC Low Dose), 81 MG PO QAM Atorvastatin (Lipitor), 1 TAB PO DAILY Clopidogrel Bisulfate (Clopidogrel), 75 MG PO QAM Losartan Potassium (Cozaar), 50 MG PO DAILY Metoprolol Succinate (Metoprolol Succinate ER), 25 MG PO DAILY Pravastatin Sodium (Pravastatin Sodium), 10 MG PO Q2D Physical Exam Vital Signs Date Time Temp Pulse Resp B/P (MAP) Pulse Ox O2 Delivery O2 Flow Rate FiO2 04/11/17 08:51 80 20 141/85 95 Room Air 04/11/17 08:18 82 04/11/17 07:48 36.5 85 20 181/105 99 Room Air Physical Exam VITALS: Vitals are noted on the nurse's note and reviewed by myself. Vital signs stable. GENERAL: This is a 47-year-old white male, in no acute distress, nondiaphoretic , well-developed well-nourished. SKIN: The skin was without rashes, erythema, edema, or bruising. There is no tenting of the skin. Capillary reflex less than 2 seconds. HEAD: Normocephalic atraumatic. EARS: External auditory canals clear, tympanic membranes pearly [place] without erythema or effusion bilaterally. EYES: Pupils equal round and reactive to light and accommodation. Conjunctivae without injection, sclerae without icterus. Extraocular movements intact. NOSE: Patent, turbinates without inflammation or discharge. No sinus tenderness. MOUTH: Mucous membranes moist. Tonsils are not enlarged. Pharynx without erythema or exudate. Uvula midline. Airway patent. Tongue does not deviate. NECK: Supple without nuchal rigidity. No lymphadenopathy. No thyromegaly. Cervical spine is nontender. No JVD. HEART: Regular rate and rhythm without murmurs gallops or rubs. LUNGS: Clear to auscultation bilaterally without wheezes, rales or rhonchi. No dullness to percussion. No retractions or accessory muscle use. ABDOMEN: Positive bowel sounds x 4. Normal tympanic percussion. Soft, nontender, without masses or organomegaly. Fraser sign negative. No guarding or rebound tenderness. MUSCULOSKELETAL: No muscle atrophy, erythema, or edema noted. Full range of motion without joint tenderness in all extremities. No tenderness to palpation. Normal gait. Strength 5/5 throughout. NEURO: Patient was alert and oriented to person place and time. Normal sensation to light and sharp touch. Deep tendon reflexes 2+ throughout. No focal neurological deficits. Medical Decision & Procedures Laboratory Results 04/11/17 08:15 Red Blood Count 5.39, Mean Corpuscular Volume 86.8, Mean Corpuscular Hemoglobin 29.7, Mean Corpuscular Hemoglobin Concent 34.2, Mean Platelet Volume 9.0, Neutrophils (%) (Auto) 63.5, Lymphocytes (%) (Auto) 24.4, Monocytes (%) (Auto) 8.3, Eosinophils (%) (Auto) 2.4, Basophils (%) (Auto) 1.1, Neutrophils # (Auto) 4.51, Lymphocytes # (Auto) 1.73, Monocytes # (Auto) 0.59, Eosinophils # (Auto) 0.17, Basophils # (Auto) 0.08 04/11/17 08:15 Test 04/11/17 08:10 04/11/17 08:15 Creatine Kinase MB Ratio (0-3.0) White Blood Count 7.10 K/uL (4.8-10.8) Red Blood Count 5.39 M/uL (4.7-6.1) Hemoglobin 16.0 g/dL (14.0-18.0) Hematocrit 46.8 % (42-52) Mean Corpuscular Volume 86.8 fL (80-100) Mean Corpuscular Hemoglobin 29.7 pg (25-34) Mean Corpuscular Hemoglobin Concent 34.2 g/dl (32-36) Platelet Count 270 K/uL (130-400) Mean Platelet Volume 9.0 fL (7.4-10.4) Neutrophils (%) (Auto) 63.5 % Lymphocytes (%) (Auto) 24.4 % Monocytes (%) (Auto) 8.3 % Eosinophils (%) (Auto) 2.4 % Basophils (%) (Auto) 1.1 % Neutrophils # (Auto) 4.51 K/uL (1.4-6.5) Lymphocytes # (Auto) 1.73 K/uL (1.2-3.4) Monocytes # (Auto) 0.59 K/uL (0.11-0.59) Eosinophils # (Auto) 0.17 K/uL (0-0.5) Basophils # (Auto) 0.08 K/uL (0-0.2) RDW Standard Deviation 43.3 fL (36.4-46.3) RDW Coefficient of Variation 13.7 % (11.5-14.5) Immature Granulocyte % (Auto) 0.3 % Immature Granulocyte # (Auto) 0.02 K/uL (0.00-0.02) Anion Gap 4.0 mmol/L (3-11) Est Creatinine Clear Calc Drug Dose 103.7 ml/min Estimated GFR () 104.5 Estimated GFR (Non- 90.2 BUN/Creatinine Ratio 10.6 (10-20) Calcium Level 9.1 mg/dl (8.5-10.1) Magnesium Level 2.1 mg/dl (1.8-2.4) Total Bilirubin 0.6 mg/dl (0.2-1) Aspartate Amino Transf (AST/SGOT) 16 U/L (15-37) Alanine Aminotransferase (ALT/SGPT) 30 U/L (12-78) Alkaline Phosphatase 87 U/L (45-117) Creatine Kinase MB 2.3 ng/ml (0.5-3.6) Troponin I < 0.015 ng/ml (0-0.045) Total Protein 7.8 gm/dl (6.4-8.2) Albumin 4.1 gm/dl (3.4-5.0) Globulin 3.7 gm/dl (2.5-4.0) Albumin/Globulin Ratio 1.1 (0.9-2) Lipase 153 U/L (73-393) Thyroid Stimulating Hormone (TSH) 2.000 uIu/ml (0.300-4.500) ECG Indication: chest pain Rate (beats per minute): 73 Rhythm: normal sinus Findings: no acute ischemic change, no ectopy Comparison ECG Date: 12/14/16 Change: no significant change Medical Decision The patient was seen and evaluated as above. He did not experience any pain or discomfort while in the emergency department. He states last time he experiences discomfort was a few days ago. He does appear to be suffering from anxiety, and I do feel that that is causing the patient's symptoms. He does not describe any sharp, shearing, or tearing sensations in his back, although I did consider aortic aneurysm in my differential. The patient has equal and strong pulses bilaterally, which also needs and decreasing my suspicion for this. The patient does have a long history of anxiety, but has never been treated. He is very concerned now due to the chest pain, once to make sure everything is okay. His workup here in the emergency department was overall negative, and he did have a very long discussion with him regarding his anxiety and stress. I encouraged him to follow up outpatient with his PCP for long- term treatment, but I did discuss starting him on buspirone for right now to hopefully help with his symptoms in the meanwhile. The patient was given a short prescription, and discharge instructions were reviewed. The patient was discharged home in good condition. I did discuss the case with Dr. Leiva, who is in agreement with the assessment and plan. Differential diagnosis includes: Acute coronary syndrome, aortic aneurysm, congestive heart failure, Acute MA, surgical complication, bronchitis, pneumonia , malignancy, anxiety, and others Medication Reconcilliation Current Medication List: was personally reviewed by me Blood Pressure Screening Patient's blood pressure: Elevated blood pressure Blood pressure disposition: Elevated BP felt to be situational, Referred to PCP Impression Primary Impression: Non-cardiac chest pain Additional Impression: Anxiety Departure Information Dispostion Home / Self-Care Condition GOOD Referrals Elvi Magaña DO (PCP) Arcadio Dela Cruz MD Patient Instructions Anxiety Disorder, ED Chest Pain NonCardiac, My [facility] Additional Instructions He was seen in the emergency department today for chest pain. Your labs, imaging, and EKG did not reveal any suspicious findings for cardiac chest pain. I do suspect anxiety as the cause of your pain, as your pain tends to come after he began feeling stressed and anxious. You were given a prescription for buspirone to help with anxiety. This medication can make you dizzy, so you may want to consider starting it at night. As discussed, this medication does work best if you take it daily. Please contact your PCP for ongoing management of the anxiety. You may want to consider seeing a counselor to discuss your anxiety. Follow-up with your primary care provider in one to 2 days for recheck and chronic management. 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 Please be cautious while driving. Return to the emergency department for worsening chest pain, difficulty breathing, pain radiating into the back, worsening anxiety symptoms which are not improved with current therapy. Work Instructions Return To Work: 1 day Problem [employer]
== END 2017-04-11 09:42 | disposition home or self-care (01) ==
LOC: C.EDB 07:48
DX: R07.89 Other chest pain (principal); F41.9 Anxiety disorder, unspecified; I10 Essential (primary) hypertension; I25.2 Old myocardial infarction; Z80.9 Family history of malignant neoplasm, unspecified; Z83.3 Family history of diabetes mellitus; Z82.49 Family history of ischemic heart disease and other diseases of the circulatory system; Z84.1 Family history of disorders of kidney and ureter; Z79.82 Long term (current) use of aspirin; Z79.899 Other long term (current) drug therapy

== ENCOUNTER → 2017-08-04 | Outpatient (CLI) | payer OTHER ==
[~2017-08-04] MED LIST changes: -ASPEC81 PO; +ASPI-320 PO; +PRAV10TA39 PO; -TRIA1SPR4
--- NOTE | 2017-08-04 08:31 | DIAGNOSTIC IMAGING REPORT ---
LUMBAR SPINE MRI HISTORY: SUSPICIOUS OF DISC BULGE, LUMBAR PAIN RADIATING IN LEFT LEG TECHNIQUE: Multiplanar multisequence MRI of the lumbar spine was performed without the use of contrast. COMPARISON: None. FINDINGS: For the purpose of the report the L5-S1 disc space will be located on axial image 27 of 30. No fracture or subluxation. Minimal S-shaped scoliosis of the thoracolumbar spine. The conus terminates at the L1 level. Mild disc space narrowing at L1-L2. The remaining disc spaces are preserved. Mild facet degenerative changes seen within the lower lumbar spine. Paraspinal soft tissues are unremarkable. L1-L2: Small broad-based posterior disc bulge without significant central canal or neural foraminal narrowing. L2-L3: No significant central canal or neural foraminal narrowing. L3-L4: Tiny focal central disc protrusion without significant central canal narrowing or neural foraminal narrowing.. L4-L5: Small broad-based posterior disc bulge with ligamentum and facet hypertrophy resulting in mild central canal and mild bilateral neural foraminal narrowing. L5-S1: Right paracentral annular tear without significant central canal or neural foraminal narrowing. IMPRESSION: 1. Mild degenerative changes as described above most pronounced at the L4-L5 level with there is mild central canal and mild bilateral neural foraminal narrowing. 2. Minimal S-shaped scoliosis of the thoracolumbar spine. 3. No fractures within the lumbar spine. Electronically signed by: Yoshi Johnson M.D. 08/04/2017 8:29 AM Dictated Date/Time: 08/04/2017 8:21 AM
== END | disposition home or self-care (01) ==
LOC: C.MRI 07:39
PROVIDERS: ATTEND Chiropractor
DX: M51.17 Intervertebral disc disorders with radiculopathy, lumbosacral region (principal)

== ENCOUNTER 2017-12-17 16:13 | Emergency (ER) | payer OTHER ==
[~2017-12-17] VITALS: Ht 177.8 cm; Wt 95.3 kg
[2017-12-17 16:15] VITALS: TEMP 36.9; Ht 177.8 cm; Wt 95.3 kg
[2017-12-17 17:16] VITALS: O2SAT 97
[2017-12-17] MEDS ORDERED: ASPI81TA28 PO (17:24)
[2017-12-17] MEDS ORDERED: ACET-1256 PO (17:24)
[2017-12-17] MEDS ORDERED: COEN100C11 PO (17:24)
[2017-12-17] MEDS ORDERED: PRVC/20 PO (17:24)
[2017-12-17 17:35] LABS: BASO % 0.6 %; BASO ABS # 0.06 K/uL (0-0.2); EOS % 1.1 %; HEMATOCRIT 44.4 % (42-52); HEMOGLOBIN 14.8 g/dL (14.0-18.0); IG# 0.04 K/uL (0.00-0.02); LYMPH % 17.6 %; LYMPH ABS # 1.67 K/uL (1.2-3.4); MEAN CELL VOLUME 87.2 fL (80-100); MEAN CORPUSCULAR HEMOGLOBIN 29.1 pg (25-34); MEAN CORPUSCULAR HGB CONC 33.3 g/dl (32-36); MEAN PLATELET VOLUME 9.3 fL (7.4-10.4); MONO ABS # 0.76 K/uL (0.11-0.59); NEUT % 72.3 %; NEUT ABS # 6.86 K/uL (1.4-6.5); PLATELET COUNT 269 K/uL (130-400); RED CELL DISTRIBUTION WIDTH CV 13.6 % (11.5-14.5); RED CELL DISTRIBUTION WIDTH SD 43.2 fL (36.4-46.3); WHITE BLOOD COUNT 9.49 K/uL (4.8-10.8)
--- NOTE | 2017-12-17 17:41 | DIAGNOSTIC IMAGING REPORT ---
CHEST ONE VIEW PORTABLE CLINICAL HISTORY: 47 years-old Male presenting with severe hypertension. TECHNIQUE: Portable upright AP view of the chest was obtained. COMPARISON: 04/11/2017. FINDINGS: Cardiac silhouette top normal in size. Calcified granuloma suggested at the left lung base. No other focal opacity. No large effusion or pneumothorax. Degenerative changes of the thoracic spine. IMPRESSION: 1. No acute cardiopulmonary disease. Electronically signed by: El Perrin M.D. 12/17/2017 5:40 PM Dictated Date/Time: 12/17/2017 5:39 PM
[2017-12-17 17:49] LABS: ALKALINE PHOSPHATASE 82 U/L (45-117); ALT/SGPT 42 U/L (12-78); AST/SGOT 22 U/L (15-37); BLOOD UREA NITROGEN 11 mg/dl (7-18); CALCIUM 9.2 mg/dl (8.5-10.1); CARBON DIOXIDE 27 mmol/L (21-32); CREATININE 0.88 mg/dl (0.60-1.40); GLUCOSE 100 mg/dl (70-99); LIPASE 126 U/L (73-393); SODIUM 138 mmol/L (136-145); TOTAL PROTEIN 7.5 gm/dl (6.4-8.2)
--- NOTE | 2017-12-17 18:15 | EMERGENCY ROOM VISIT NOTE ---
History Report prepared by Marian: Sandra Link Under the Supervision of: Dr. Ricky Reid M.D. First contact with patient: 17:02 Chief Complaint: HYPERTENSION Stated Complaint: CHEST TIGHTNESS, HIGH BLOOD PRESSURE History of Present Illness The patient is a 47 year old male who presents to the Emergency Room with complaints of persistent hypertension beginning a few weeks ago. 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 The patient reports he has been feeling generally unwell and experiencing intermittent chest discomfort for a few weeks, but is unsure what causes the discomfort to come or go. He also notes some intermittent head pressure. The patient states these symptoms feel similar to past episodes of HTN he has experienced. His notes he has been experiencing sinus symptoms that may be due to allergies, but the patient does not take allergy medication due to fear of it interacting with his BP medications. He denies fevers, coughs , nausea, abdominal pain, difficulty eating or drinking, bowel movement symptoms , or urinary symptoms.The patient takes Metoprolol, Losartan, and Aspirin daily. He reports he has not seen his PCP for his symptoms. Source of History: patient Onset: few weeks ago Position: chest Quality: other Associated Symptoms: No fevers, No cough, No nausea, No urinary symptoms Note: Associated symptoms: feeling generally unwell, intermittent head pressure, intermittent chest discomfort, sinus symptoms. Denies: bowel movement symptoms, difficulty eating or drinking. Review of Systems See HPI for pertinent positives and negatives. A total of ten systems were reviewed and were otherwise negative. Past Medical & Surgical Medical Problems: (1) Elevated troponin (2) HTN (hypertension) (3) HYPERTENSION NOS (4) Lung granuloma (5) NSTEMI (non-ST elevated myocardial infarction) Family History Cancer Diabetes mellitus Gallbladder disease Hypertension Kidney disease Kidney stones Seizures Social History Smoking Status: Former Smoker Alcohol Use: none Drug Use: none Marital Status: Housing Status: lives with significant other Occupation Status: employed Current/Historical Medications Scheduled Acetaminophen (Tylenol), 1,000 MG PO PRN UD Aspirin (Aspirin Ec), 81 MG PO DAILY Coenzyme Q10 (Ubidecarenone) (Coq-10), 100 MG PO DAILY Losartan Potassium (Cozaar), 50 MG PO DAILY Metoprolol Succinate (Metoprolol Succinate ER), 25 MG PO DAILY Pravastatin Sod (Pravastatin Sodium), 20 MG PO QPM Allergies Coded Allergies: No Known Allergies (Unverified , 04/11/17) Physical Exam Vital Signs Date Time Temp Pulse Resp B/P (MAP) Pulse Ox O2 Delivery O2 Flow Rate FiO2 12/17/17 19:08 89 17 145/95 97 12/17/17 18:48 80 16 146/102 97 Room Air 12/17/17 18:18 94 22 98 12/17/17 18:16 194/127 12/17/17 17:43 75 22 96 12/17/17 17:16 97 Room Air 12/17/17 17:13 85 96 12/17/17 17:00 154/102 12/17/17 16:48 97 12/17/17 16:43 87 12/17/17 16:43 83 23 12/17/17 16:41 149/104 12/17/17 16:15 36.9 81 20 170/103 98 Room Air Physical Exam GENERAL: Awake, alert, well-appearing, in no distress HENT: Normocephalic, atraumatic. Oropharynx unremarkable. EYES: Normal conjunctiva. Sclera non-icteric. NECK: Supple. No nuchal rigidity. RESPIRATORY: Clear to auscultation. No wheezes. Normal respiratory effort. CARDIAC: Normal rate. Normal rhythm. Extremities warm and well perfused. GI: Soft, non-distended. No tenderness to palpation. No rebound or guarding. No masses. RECTAL: Deferred. MUSCULOSKELETAL: Atraumatic. Chest examination reveals no tenderness. There is no CVA tenderness to palpation. LOWER EXTREMITIES: Calves are equal size bilaterally and non-tender. No edema NEURO: Normal sensorium. No sensory or motor deficits noted. No facial droop. SKIN: Warm and dry. No rash or jaundice noted. Medical Decision & Procedures ER Provider Diagnostic Interpretation: Radiology results as stated below per my review and radiologist interpretation: CHEST ONE VIEW PORTABLE CLINICAL HISTORY: 47 years-old Male presenting with severe hypertension. TECHNIQUE: Portable upright AP view of the chest was obtained. COMPARISON: 04/11/2017. FINDINGS: Cardiac silhouette top normal in size. Calcified granuloma suggested at the left lung base. No other focal opacity. No large effusion or pneumothorax. Degenerative changes of the thoracic spine. IMPRESSION: 1. No acute cardiopulmonary disease. Electronically signed by: El Perrin M.D. 12/17/2017 5:40 PM Dictated Date/Time: 12/17/2017 5:39 PM Laboratory Results 12/17/17 16:45 Red Blood Count 5.09, Mean Corpuscular Volume 87.2, Mean Corpuscular Hemoglobin 29.1, Mean Corpuscular Hemoglobin Concent 33.3, Mean Platelet Volume 9.3, Neutrophils (%) (Auto) 72.3, Lymphocytes (%) (Auto) 17.6, Monocytes (%) (Auto) 8.0, Eosinophils (%) (Auto) 1.1, Basophils (%) (Auto) 0.6, Neutrophils # (Auto) 6.86, Lymphocytes # (Auto) 1.67, Monocytes # (Auto) 0.76, Eosinophils # (Auto) 0.10, Basophils # (Auto) 0.06 12/17/17 16:45 Test 12/17/17 16:45 White Blood Count 9.49 K/uL (4.8-10.8) Red Blood Count 5.09 M/uL (4.7-6.1) Hemoglobin 14.8 g/dL (14.0-18.0) Hematocrit 44.4 % (42-52) Mean Corpuscular Volume 87.2 fL (80-100) Mean Corpuscular Hemoglobin 29.1 pg (25-34) Mean Corpuscular Hemoglobin Concent 33.3 g/dl (32-36) Platelet Count 269 K/uL (130-400) Mean Platelet Volume 9.3 fL (7.4-10.4) Neutrophils (%) (Auto) 72.3 % Lymphocytes (%) (Auto) 17.6 % Monocytes (%) (Auto) 8.0 % Eosinophils (%) (Auto) 1.1 % Basophils (%) (Auto) 0.6 % Neutrophils # (Auto) 6.86 K/uL (1.4-6.5) Lymphocytes # (Auto) 1.67 K/uL (1.2-3.4) Monocytes # (Auto) 0.76 K/uL (0.11-0.59) Eosinophils # (Auto) 0.10 K/uL (0-0.5) Basophils # (Auto) 0.06 K/uL (0-0.2) RDW Standard Deviation 43.2 fL (36.4-46.3) RDW Coefficient of Variation 13.6 % (11.5-14.5) Immature Granulocyte % (Auto) 0.4 % Immature Granulocyte # (Auto) 0.04 K/uL (0.00-0.02) Anion Gap 10.0 mmol/L (3-11) Est Creatinine Clear Calc Drug Dose 117.7 ml/min Estimated GFR () 116.9 Estimated GFR (Non- 100.9 BUN/Creatinine Ratio 12.6 (10-20) Calcium Level 9.2 mg/dl (8.5-10.1) Total Bilirubin 0.5 mg/dl (0.2-1) Direct Bilirubin 0.1 mg/dl (0-0.2) Aspartate Amino Transf (AST/SGOT) 22 U/L (15-37) Alanine Aminotransferase (ALT/SGPT) 42 U/L (12-78) Alkaline Phosphatase 82 U/L (45-117) Troponin I < 0.015 ng/ml (0-0.045) Total Protein 7.5 gm/dl (6.4-8.2) Albumin 4.0 gm/dl (3.4-5.0) Lipase 126 U/L (73-393) Thyroid Stimulating Hormone (TSH) 2.880 uIu/ml (0.300-4.500) Laboratory results reviewed by me Medications Administered Medications (Trade) Dose Ordered Sig/Yared Route Start Time Stop Time Status Last Admin Dose Admin Diphenhydramine HCl (Benadryl Inj) 50 mg NOW STAT IV 12/17/17 18:20 12/17/17 18:21 DC 12/17/17 18:28 50 MG ECG Per My Interpretation Indication: other (hypertension) Rate (beats per minute): 81 Rhythm: normal sinus Findings: no acute ischemic change, no ectopy, other (normal intervals. normal axis. no ST elevation. ) Comparison ECG Date: 04/11/17 ED Course 170: The patient was evaluated in room B11B. A complete history and physical exam was performed. 1818: I reevaluated and updated the patient. 1819: Ordered Benadryl Inj 50mg IV. 1848: I reevaluated the patient. Discussed results and discharge instructions: he verbalized understanding and agreement. The patient is ready for discharge. Medical Decision Differential diagnosis: Etiologies such as benign hypertension, hypertensive emergency, cardiovascular pathology, pheochromocytoma, electrolyte abnormality, renal disease, endorgan damage, as well as others were entertained. Hypertension occasionally getting some headaches; not now. Occasionally some chest discomfort. Fatigue ongoing for several weeks to a couple months since adding Plavix. Does endorse some anxiety component and allergy components with sinus congestion. Denies abdominal upset. Labs are unremarkable. Doubt this is ACS. EKG and troponin unremarkable. TSH within normal limits. Has not talked to his regular doctor and encouraged to discuss better blood pressure management. Do not believe this hypertensive emergency. There are no neurological deficits. Will trial a course of antihistamine to help with his sinus and possible allergic component. Given reassurance. He is quite anxious here and openly acknowledge he has severe anxiety issues. Given some Benadryl helped the allergic component and with anxiety. Did have some improvement with this. Discussed options going forward. Feel he is stable for discharge. Recommended outpatient follow-up within a week with his regular doctor to discuss his anxiety and hypertension; can also see how his allergy symptoms are responding to the antihistamines. Discussed return criteria. Medication Reconcilliation Current Medication List: was personally reviewed by me Blood Pressure Screening Patient's blood pressure: Elevated blood pressure Blood pressure disposition: Referred to PCP Impression Primary Impression: HTN (hypertension) Additional Impressions: Anxiety Allergic arthritis Scribe Attestation The scribe's documentation has been prepared under my direction and personally reviewed by me in its entirety. I confirm that the note above accurately reflects all work, treatment, procedures, and medical decision making performed by me. Departure Information Dispostion Home / Self-Care Referrals No Doctor, Assigned (PCP) Forms HOME CARE DOCUMENTATION FORM, IMPORTANT VISIT INFORMATION, WORK / SCHOOL INSTRUCTIONS Patient Instructions My [facility] Additional Instructions Continue to discuss with your doctor your blood pressure control and anxiety issues. He may utilize Zyrtec to help with allergy symptoms. If you feel the need for medicine to help with anxiety may try [id number] Benadryl, but would continue to have discussion with her outpatient doctor regarding long- term treatment of this. If at any point you have concerns you can return here for reevaluation. Problem Qualifiers Primary Impression: HTN (hypertension) Hypertension type: essential hypertension Qualified Codes: I10 - Essential ( primary) hypertension
[2017-12-17] MEDS ORDERED: DiphenhydrAMINE HCL 50 MG/ML VIAL IV STA (18:20)
[2017-12-17 19:08] VITALS: BP 145/95; PULSE 89; O2SAT 97
--- NOTE | 2017-12-22 08:59 | EDITING REQUIRED CODING QUERY ---
TREATMENT RENDERED WITHOUT A DIAGNOSIS 68 To promote full compliance with coding requirements relating to patient care, physician participation is requested in all cases of materials research engineer uncertainty. Please assist us with the question(s) below: Coding Question: Dr. Reid, I just wanted to check with you on your Additional Impression of ALLERGIC ARTHRITIS, I saw the patient was experiencing sinus symptoms that may be due to allergies & I just wanted to check with you if the ARTHRITIS was the correct dx for this patient Thank you! Provider Response: Thank you, Yes that should be Allergic Rhinitis NOT Arthritis. Ricky Thank you Smaantha Zavala
== END 2017-12-17 19:09 | disposition home or self-care (01) ==
LOC: C.EDB 16:14
DX: I10 Essential (primary) hypertension (principal); F41.9 Anxiety disorder, unspecified; J30.9 Allergic rhinitis, unspecified; M13.80 Other specified arthritis, unspecified site; I25.2 Old myocardial infarction; Z87.891 Personal history of nicotine dependence; Z79.82 Long term (current) use of aspirin; Z79.899 Other long term (current) drug therapy